=== PATIENT | female | born 1970 | race African-American/Black ===

== ENCOUNTER → 2016-06-16 | Outpatient (CLI) | payer OTHER ==
[2016-06-16 08:11] LABS: ABSOLUTE EOSINOPHILS # (AUTO) 0.1 10^3/uL (0.0-0.6); ABSOLUTE LYMPHOCYTES (AUTO) 1.5 10^3/uL (0.5-4.7); ABSOLUTE MONOCYTES (AUTO) 0.5 10^3/uL (0.1-1.4); ABSOLUTE NEUT (AUTO) 2.3 10^3/uL (1.7-8.2); BASOPHILS % (AUTO) 0.4 % (0-2); HEMATOCRIT 32.2 % (36.0-47.0); HEMOGLOBIN 10.5 g/dL (12.0-15.5); HGB HCT DIFFERENCE -0.7; LYMPHOCYTES % (AUTO) 33.5 % (13-45); MEAN CORPUSCULAR HEMOGLOBIN 25.3 pg (27.0-33.4); MEAN CORPUSCULAR HGB CONC 32.5 g/dL (32.0-36.0); MEAN CORPUSCULAR VOLUME 78 fl (80-97); MONOCYTES % (AUTO) 11.6 % (3-13); RED BLOOD COUNT 4.15 10^6/uL (3.72-5.28); RED CELL DISTRIBUTION WIDTH 15.1 % (11.5-14.0); SEGMENTED NEUTROPHILS % (AUTO) 52.5 % (42-78); WHITE BLOOD COUNT 4.4 10^3/uL (4.0-10.5)
[2016-06-16 08:34] LABS: ALANINE AMINOTRANSFERASE 35 U/L (9-52); ALBUMIN 4.3 g/dL (3.5-5.0); ALKALINE PHOSPHATASE 98 U/L (38-126); ANION GAP 10 (5-19); ASPARTATE AMINO TRANSFERASE 24 U/L (14-36); BILIRUBIN,TOTAL 0.8 mg/dL (0.2-1.3); BLOOD UREA NITROGEN 14 mg/dL (7-20); C-REACTIVE PROTEIN 16.7 mg/L (<10.0); CALCIUM 9.5 mg/dL (8.4-10.2); CARBON DIOXIDE 28 mmol/L (22-30); CHLORIDE 104 mmol/L (98-107); CHOLESTEROL 245.42 mg/dL (0-200); CREATININE RESULT 0.78 mg/dL (0.52-1.25); Direct HDL 59 mg/dL (>40); GLUCOSE 79 mg/dL (75-110); POTASSIUM 3.9 mmol/L (3.6-5.0); SODIUM 141.6 mmol/L (137-145); TOTAL PROTEIN 7.9 g/dL (6.3-8.2); TRIGLYCERIDES 67 mg/dL (<150)
[2016-06-16 08:43] LABS: DIRECT LDL 132 mg/dL (<100)
[2016-06-18 08:08] LABS: CYCLIC CITRUL PEPTIDE IGG/A AB 5 units (0-19)
== END ==
LOC: CCC 07:12
DX: M25.50 Pain in unspecified joint (principal); M25.60 Stiffness of unspecified joint, not elsewhere classified; I10 Essential (primary) hypertension
CPT/HCPCS: 36415; 80053; 80061; 83036; 84443; 85025; 86038; 86140; 86200; 86430

== ENCOUNTER → 2016-07-27 | Outpatient (CLI) | payer OTHER | LOC: CCC 09:57 | DX: D50.9 Iron deficiency anemia, unspecified (principal) | CPT/HCPCS: 36415; 82728; 83540; 83550 ==

== ENCOUNTER → 2017-02-25 | Outpatient (CLI) | payer OTHER | LOC: CCC 07:20 | DX: Z13.1 Encounter for screening for diabetes mellitus (principal) | CPT/HCPCS: 36415; 83036 ==

== ENCOUNTER → 2017-05-28 | Outpatient (CLI) | payer OTHER ==
--- NOTE | 2017-05-28 10:22 | EKG REPORT ---
SEVERITY:- NORMAL ECG - SINUS RHYTHM : Confirmed by: Stephanie Guerra 28-May-2017 10:21:02
[2017-05-28 11:39] LABS: ABSOLUTE EOSINOPHILS # (AUTO) 0.1 10^3/uL (0.0-0.6); ABSOLUTE LYMPHOCYTES (AUTO) 1.8 10^3/uL (0.5-4.7); ABSOLUTE MONOCYTES (AUTO) 0.3 10^3/uL (0.1-1.4); ABSOLUTE NEUT (AUTO) 1.5 10^3/uL (1.7-8.2); BASOPHILS % (AUTO) 0.9 % (0-2); HEMOGLOBIN 11.2 g/dL (12.0-15.5); LYMPHOCYTES % (AUTO) 47.3 % (13-45); MEAN CORPUSCULAR HEMOGLOBIN 24.3 pg (27.0-33.4); MEAN CORPUSCULAR VOLUME 76 fl (80-97); MONOCYTES % (AUTO) 9.4 % (3-13); PLATELET COUNT 158 10^3/uL (150-450); RED BLOOD COUNT 4.61 10^6/uL (3.72-5.28); RED CELL DISTRIBUTION WIDTH 16.3 % (11.5-14.0); SEGMENTED NEUTROPHILS % (AUTO) 40.4 % (42-78); TOTAL CELLS COUNTED % (AUTO) 100 %; WHITE BLOOD COUNT 3.7 10^3/uL (4.0-10.5)
[2017-05-28 12:01] LABS: ALANINE AMINOTRANSFERASE 39 U/L (9-52); ALBUMIN 4.2 g/dL (3.5-5.0); ALKALINE PHOSPHATASE 107 U/L (38-126); ANION GAP 9 (5-19); ASPARTATE AMINO TRANSFERASE 28 U/L (14-36); BILIRUBIN,DIRECT 0.3 mg/dL (0.0-0.4); BILIRUBIN,TOTAL 0.6 mg/dL (0.2-1.3); BLOOD UREA NITROGEN 6 mg/dL (7-20); C-REACTIVE PROTEIN 16.8 mg/L (<10.0); CALCIUM 9.8 mg/dL (8.4-10.2); CARBON DIOXIDE 27 mmol/L (22-30); CHLORIDE 107 mmol/L (98-107); CHOLESTEROL 243.39 mg/dL (0-200); CREATINE KINASE 186 U/L (30-135); GLUCOSE 78 mg/dL (75-110); POTASSIUM 4.5 mmol/L (3.6-5.0); TOTAL PROTEIN 7.7 g/dL (6.3-8.2); TRIGLYCERIDES 91 mg/dL (<150)
[2017-05-28 12:10] LABS: DIRECT LDL 155 mg/dL (<100)
[2017-05-28 12:20] LABS: ERYTHROCYTE SEDIMENTATION RATE 41 mm/hr (0-20)
[2017-05-31 07:04] LABS: CYCLIC CITRUL PEPTIDE IGG/A AB 6 units (0-19)
[2017-05-31 12:21] LABS: ANGIOTENSIN-CONVERTING ENZYME 60 U/L (14-82)
== END ==
LOC: CCC 09:39
DX: I10 Essential (primary) hypertension (principal); M25.50 Pain in unspecified joint; E78.5 Hyperlipidemia, unspecified; R00.9 Unspecified abnormalities of heart beat
CPT/HCPCS: 36415; 80053; 80061; 82164; 82550; 83036; 84443; 85025; 85652; 86038; 86140; 86200; 86430; 93005; 93010

== ENCOUNTER → 2017-06-04 | Outpatient (CLI) | payer OTHER ==
[2017-06-04 10:35] LABS: IRON 48.3 ug/dL (37-170)
[2017-06-04 11:04] LABS: FERRITIN 24.3 ng/mL (6.2-137.0)
[2017-06-07 17:37] LABS: HGB A 97.7 % (96.4-98.8); HGB A2 2.3 % (1.8-3.2); HGB SOLUBILITY RESULT Negative (Negative)
== END ==
LOC: CCC 09:28
DX: D50.9 Iron deficiency anemia, unspecified (principal)
CPT/HCPCS: 36415; 82728; 83020; 83540

== ENCOUNTER 2017-09-03 08:42 | Emergency (ER) | payer SELFPAY ==
[2017-09-03 08:52] VITALS: BP 149/90
[2017-09-03] MEDS ORDERED: TETRACAINE HCL 0.5% OPH SOLN 2 ML OD ONE (09:09)
--- NOTE | 2017-09-03 09:15 | ER Document Report ---
HPI - HPI Patient complains to provider of: left eye irritation Onset: Yesterday Onset/Duration: Sudden Quality of pain: Achy Severity: Severe Pain Level: 5 Context: Patient presents emergency department with complaints of left eye irritation since yesterday. She reports she wears contacts but has removed his contacts. She reports this morning she woke up and the sunlight really hurt her eye and she had drainage. She denies trauma. She denies fever vomiting diarrhea. She reports history of something that happened to her eye many years ago and she used steroid drops. Associated Symptoms: None Exacerbated by: Denies Relieved by: Denies Similar symptoms previously: No Recently seen / treated by doctor: No - REPRODUCTIVE Reproductive: DENIES: : Past Medical History - General Information source: Patient Last Menstrual Period: hyst - Social History Smoking Status: Unknown if Ever Smoked Cigarette use (# per day): No Frequency of alcohol use: None Drug Abuse: None Occupation: [employer] Lives with: Family Family History: Reviewed & Not Pertinent - Past Medical History Cardiac Medical History: Reports: Hx Hypercholesterolemia, Hx Hypertension Denies: Hx Coronary Artery Disease, Hx Heart Attack Pulmonary Medical History: Denies: Hx Asthma, Hx Bronchitis, Hx COPD, Hx Pneumonia Neurological Medical History: Denies: Hx Cerebrovascular Accident, Hx Seizures GI Medical History: Reports: Hx Gastroesophageal Reflux Disease Musculoskeltal Medical History: Denies Hx Arthritis Past Surgical History: Reports: Hx Hysterectomy, Hx Tubal Ligation - Immunizations Immunizations up to date: Yes Hx Diphtheria, Pertussis, Tetanus Vaccination: No - unsure Vertical Provider Document - CONSTITUTIONAL Agree With Documented VS: Yes Exam Limitations: No Limitations General Appearance: WD/WN, No Apparent Distress - INFECTION CONTROL TRAVEL OUTSIDE OF THE [place] IN LAST 30 DAYS: No - HEENT HEENT: Atraumatic, Conjuctival Injection, Normocephalic, PERRLA - NECK Neck: Normal Inspection, Supple. negative: Lymphadenopathy-Left, Lymphadenopathy-Right - RESPIRATORY Respiratory: Breath Sounds Normal - CARDIOVASCULAR Cardiovascular: Regular Rate - MUSCULOSKELETAL/EXTREMETIES Musculoskeletal/Extremeties: DENIS SMALL - NEURO Level of Consciousness: Awake, Alert, Appropriate Motor/Sensory: No Motor Deficit - DERM Integumentary: Warm, Dry Course - Re-evaluation Re-evalutation: 09/03/17 Patient felt immediate relief after tetracaine drop. She was instructed on Polytrim. She was also instructed to not reuse her contacts until after she followed up with her silo erector on Tuesday. She verbalized understanding to all instructions. - Vital Signs Vital signs: Temp Pulse Resp BP Pulse Ox 99.0 F 80 16 149/90 H 96 09/03/17 08:51 09/03/17 08:51 09/03/17 08:51 09/03/17 08:51 09/03/17 08:51 Procedures - Eye Procedure Left Alcaine Drops Administered: Yes - tetracaine drops, pt reports immediate relief after drops Fluorescein applied: Left Antibiotic Oinment/Drps Admin: Left eye Slit lamp used: No Notes: 09/03/17 11:03 vargas lamp utilized- no abrasion noted, pt reports immediate relief of irritation after tetracaine drops. Patient has appointment with Dr. vega on Tuesday. She was instructed on the importance of follow-up. She was also instructed on the importance of returning to the emergency department should she experience worsening pain and swelling of the eye. She verbalized understanding to all instructions. Discharge - Discharge Clinical Impression: Irritation of left eye Conjunctivitis Qualifiers: Conjunctivitis type: unspecified Laterality: left Qualified Code(s): H10.9 - Unspecified conjunctivitis Condition: Stable Disposition: HOME, SELF-CARE Instructions: Conjunctivitis ([facility]), Eyedrop Use ([facility]) Additional Instructions: *You have been evaluated for eye irritation, bacterial conjunctivitis *Use polytrim four times a day for 5 days *Good hand washing- Do not reuse wash clothes or towels after wiping eyes *Follow up with Dr Vega Tuesday at 1500 as scheduled *Return to ED for worsening condition, changes, needs Forms: Return to Work Referrals: [facility] [Primary Care Provider] - Follow up as needed NINO VEGA, MURRAY [NO LOCAL MD] - 09/05/17 3:00 pm
[2017-09-03] MEDS ORDERED: POLYMYXIN B SULFATE/TMP OPH SOLN (10 ML/ER DISP) OS ONE (09:52)
== END 2017-09-03 10:12 | disposition home or self-care (01) ==
LOC: ER 08:42
DX: H10.9 Unspecified conjunctivitis (principal); I10 Essential (primary) hypertension
CPT/HCPCS: 99282; J3490

== ENCOUNTER 2017-11-01 23:26 | Emergency (ER) | payer MEDICAID ==
[2017-11-01] MEDS ORDERED: AMLODIPINE BESYLATE 5 MG TABLET PO ONE (23:49)
--- NOTE | 2017-11-01 23:49 | ER Document Report ---
ED General - General Chief Complaint: Vertigo Stated Complaint: HEADACHE Time Seen by Provider: 11/01/17 23:40 Notes: Patient is a 47-year-old female presents with complaint of onset of chest tightness and shortness of breath. It woke her up from sleep. She said she thought it could be related to anxiety attack and therefore she took half milligram of lorazepam which relieved her symptoms. She did call the ambulance and symptoms were started and therefore she was brought here. No interventions in the ambulance. She also complains of a headache and spinning sensation that she has had for a week. Headache is more in the frontal aspect of her head. No neck pain. No vomiting. She does take her blood pressure medications. Medication she takes for high blood pressure is a combination of losartan 100 mg with 12-1/2 mg of hydrochlorothiazide. She also takes metformin 500 mg daily because she is "prediabetic". She denies any history of coronary disease. Last stress test was over 2 years ago. She has no other complaints at this time. She denies any focal weakness or numbness. No recent fevers or infections. She says that she did check her blood pressure week ago and her headache for started and it seemed to be normal but since then her blood pressure has slowly and steadily increase. TRAVEL OUTSIDE OF THE [place] IN LAST 30 DAYS: No - Related Data Allergies/Adverse Reactions: Iodinated Contrast- Oral and IV Dye [IV Dye, Iodine Containing] Allergy (Severe , Verified 09/03/17 08:43) Swelling of Throat lisinopril Allergy (Verified 11/01/17 23:52) morphine [Morphine] Adverse Reaction (Intermediate, Verified 09/03/17 08:43) throat swelling Past Medical History - Social History Smoking Status: Never Smoker Frequency of alcohol use: None Drug Abuse: None Family History: Reviewed & Not Pertinent - Past Medical History Cardiac Medical History: Reports: Hx Hypercholesterolemia, Hx Hypertension Denies: Hx Coronary Artery Disease, Hx Heart Attack Pulmonary Medical History: Denies: Hx Asthma, Hx Bronchitis, Hx COPD, Hx Pneumonia Neurological Medical History: Denies: Hx Cerebrovascular Accident, Hx Seizures Renal/ Medical History: Denies: Hx Peritoneal Dialysis GI Medical History: Reports: Hx Gastroesophageal Reflux Disease Musculoskeltal Medical History: Denies Hx Arthritis Past Surgical History: Reports: Hx Hysterectomy, Hx Tubal Ligation - Immunizations Immunizations up to date: Yes Hx Diphtheria, Pertussis, Tetanus Vaccination: No - unsure Review of Systems - Review of Systems Notes: My Normal Review Basic REVIEW OF SYSTEMS: CONSTITUTIONAL : Denies fever, chills, or sweats. Denies recent illness. EENT: Denies eye, ear, throat, or mouth pain or symptoms. Denies nasal or sinus congestion. CARDIOVASCULAR: Chest pressure RESPIRATORY: [place] short of breath with chest pressure. GASTROINTESTINAL: Denies abdominal pain. Denies nausea, vomiting, or diarrhea. GENITOURINARY: Denies difficulty urinating, painful urination, burning, frequency, or blood in urine. MUSCULOSKELETAL: Denies neck or back pain or joint pain or swelling. SKIN: Denies rash or skin lesions. NEUROLOGICAL: Denies altered mental status or loss of consciousness. Has a headache. Denies weakness or paralysis or loss of use of either side. Denies problems with gait or speech. Denies sensory or motor loss. ALL OTHER SYSTEMS REVIEWED AND NEGATIVE. Physical Exam - Vital signs Vitals: Pulse Ox 100 11/01/17 23:37 - Notes Notes: General Appearance: Well nourished, alert, cooperative, no acute distress, no obvious discomfort. Well-appearing. Vitals: reviewed, See vital signs table. Head: no swelling or tenderness to the head Eyes: PERRL, EOMI, Conjuctiva clear Mouth: No decreasd moisture Lungs: No wheezing, No rales, No rhonci, No accessory muscle use, good air exchange bilaterally. Heart: Normal rate, Regular rythm, No murmur, no rub Abdomen: Normal BS, soft, No rigidity, No abdominal tenderness, No guarding, no rebound, no abdominal masses, no organomegaly Extremities: strength 5/5 in all extremities, good pulses in all extremities, no swelling or tenderness in the extremities, no edema. Skin: warm, dry, appropriate color, no rash Neuro: speech clear, oriented x 3, normal affect, responds appropriately to questions. Cranial nerves II through XII are intact. Distal sensation intact. Patient moves all extremities without difficulty. Normal gait. Normal finger- nose-finger testing. normal coordination of extremities on exam. Course - Re-evaluation Re-evalutation: 11/02/17 06:59 [facility] did help the patient's vertigo. Headache is improved. I did give her a dose of amlodipine and this did help her blood pressure. I will not start her amlodipine as I am worried that this would bottom her out in case her blood pressure runs normal when she is not feeling unwell. Patient chest pain chest tightness sounds consistent with anxiety and that patient says it woke her up and she felt anxious and felt some with her anxiety and therefore took Ativan which completely relieved her symptoms. Her troponin and delta troponin are negative and her EKG is normal appearing and therefore do not feel she needs admission for her chest pain episode. I do not think her vertigo is related to a central cause. Remainder of her cerebellar function is intact. She has normal gait and normal coordination of her extremities. Feel that she is safe to be discharged home. I strongly encouraged her return to ER immediately if she has worsening recurrent dizziness, fevers, current chest pain , or she feels unwell. I will follow-up closely with her primary care doctor. Patient agrees with plan and will be discharged home. Dictation of this chart was performed using voice recognition software; therefore, there may be some unintended grammatical errors. - Vital Signs Vital signs: Temp Pulse Resp BP Pulse Ox 97.8 F 95 16 127/84 H 97 11/02/17 04:23 11/02/17 04:23 11/02/17 04:23 11/02/17 04:23 11/02/17 04:23 - Laboratory Result Diagrams: 11/02/17 00:15 11/02/17 00:15 Laboratory results interpreted by me: 11/02/17 00:15 Hgb 10.1 L Hct 31.5 L MCV 76 L MCH 24.3 L RDW 15.5 H - EKG Interpretation by Me Additional EKG results interpreted by me: 11/01/17 23:48 EKG is reviewed and interpreted by me. EKG shows sinus rhythm with rate of [address] segment elevation or depression. No ischemic T-wave inversions. OH interval, QRS duration, QTc intervals are within normal range. Old EKG available for comparison is from May 28, 2017. Discharge - Discharge Clinical Impression: Vertigo Headache Qualifiers: Headache type: unspecified Headache chronicity pattern: acute headache Intractability: not intractable Qualified Code(s): R51 - Headache Chest pain Qualifiers: Chest pain type: unspecified Qualified Code(s): R07.9 - Chest pain, unspecified Condition: Good Disposition: HOME, SELF-CARE Additional Instructions: Please follow up with your doctor this week for reevaluation. Please do not hesitate to return to the ER immediately if you have any recurrent chest pain, difficulty breathing, fevers, vomiting, or feel unwell. Please follow u with the ENT physician, Dr. Rodriguez, for reevaluation Prescriptions: Meclizine HCl 25 mg PO TID PRN #20 tablet PRN Reason: Dizziness Forms: Return to Work
[2017-11-02 00:22] LABS: ABSOLUTE EOSINOPHILS # (AUTO) 0.1 10^3/uL (0.0-0.6); ABSOLUTE LYMPHOCYTES (AUTO) 2.1 10^3/uL (0.5-4.7); ABSOLUTE MONOCYTES (AUTO) 0.8 10^3/uL (0.1-1.4); ABSOLUTE NEUT (AUTO) 3.5 10^3/uL (1.7-8.2); BASOPHILS % (AUTO) 0.4 % (0-2); EOSINOPHILS % (AUTO) 1.6 % (0-6); HEMATOCRIT 31.5 % (36.0-47.0); HEMOGLOBIN 10.1 g/dL (12.0-15.5); LYMPHOCYTES % (AUTO) 32.1 % (13-45); MEAN CORPUSCULAR HEMOGLOBIN 24.3 pg (27.0-33.4); MEAN CORPUSCULAR VOLUME 76 fl (80-97); MONOCYTES % (AUTO) 12.5 % (3-13); PLATELET COUNT 190 10^3/uL (150-450); RED BLOOD COUNT 4.14 10^6/uL (3.72-5.28); RED CELL DISTRIBUTION WIDTH 15.5 % (11.5-14.0); SEGMENTED NEUTROPHILS % (AUTO) 53.4 % (42-78); TOTAL CELLS COUNTED % (AUTO) 100 %; WHITE BLOOD COUNT 6.6 10^3/uL (4.0-10.5)
[2017-11-02 00:39] LABS: ALANINE AMINOTRANSFERASE 29 U/L (9-52); ALKALINE PHOSPHATASE 92 U/L (38-126); ANION GAP 11 (5-19); ASPARTATE AMINO TRANSFERASE 21 U/L (14-36); BILIRUBIN,DIRECT 0.3 mg/dL (0.0-0.4); BILIRUBIN,TOTAL 0.4 mg/dL (0.2-1.3); BLOOD UREA NITROGEN 16 mg/dL (7-20); CALCIUM 9.1 mg/dL (8.4-10.2); CARBON DIOXIDE 27 mmol/L (22-30); CHLORIDE 107 mmol/L (98-107); GLUCOSE 92 mg/dL (75-110); POTASSIUM 3.6 mmol/L (3.6-5.0); TOTAL PROTEIN 7.5 g/dL (6.3-8.2)
--- NOTE | 2017-11-02 00:48 | RADIOLOGY REPORT (SQ) ---
EXAM DESCRIPTION: CT HEAD WITHOUT IV CONTRAST COMPLETED DATE/TME: 11/01/2017 23:47 CLINICAL HISTORY: headache,dizzy. COMPARISON: None available TECHNIQUE: Axial CT of the head obtained from the skull apex to the skull base without contrast. FINDINGS: No acute intracranial hemorrhage identified. No mass, mass effect, shift of the midline, abnormal extra-axial fluid collection or CT evidence of acute ischemic change identified. The ventricular system is unremarkable. No acute abnormalities of the supratentorial white matter, basal ganglia, cerebellum, or brainstem. The visualized paranasal sinuses and the mastoids are clear. No skull fracture identified. Visualized orbits and globes are unremarkable. DLP:1043.77 mGy-cm IMPRESSION: 1. No acute intracranial abnormality identified. This exam was performed according to our departmental dose-optimization program, which includes automated exposure control, adjustment of the mA and/or kV according to patient size and/or use of iterative reconstruction technique.
--- NOTE | 2017-11-02 01:19 | RADIOLOGY REPORT (SQ) ---
EXAM DESCRIPTION: XR CHEST 1 VIEW COMPLETED DATE/TME: 11/01/2017 01:06 CLINICAL HISTORY: chest pain COMPARISON: None. FINDINGS: Single frontal view of the chest. Leads overlie the chest. The cardiomediastinal silhouette has normal size and contour. No consolidation, pneumothorax, or pleural effusion. No displaced rib fractures identified. Upper abdominal soft tissues are unremarkable. IMPRESSION: 1. No acute pulmonary process identified.
[2017-11-02] MEDS ORDERED: MECLIZINE HCL 25 MG TABLET PO ONE (02:02)
[2017-11-02 04:17] VITALS: BP 127/84
--- NOTE | 2017-11-03 07:43 | EKG REPORT ---
SEVERITY:- NORMAL ECG - SINUS RHYTHM : Confirmed by: Coleen Tipton MD 03-Nov-2017 07:41:55
== END 2017-11-02 04:23 | disposition home or self-care (01) ==
LOC: ER 23:26
DX: R42 Dizziness and giddiness (principal); R07.9 Chest pain, unspecified; R51 Headache; R06.02 Shortness of breath; E78.00 Pure hypercholesterolemia, unspecified; I10 Essential (primary) hypertension; Z88.6 Allergy status to analgesic agent; Z90.710 Acquired absence of both cervix and uterus
CPT/HCPCS: 93005; 99284; 36415; 85025; 80053; 84484; 71045; 70450; 93010; J3490

== ENCOUNTER → 2018-03-14 | Outpatient (CLI) | payer OTHER ==
[2018-03-14 09:05] LABS: ABSOLUTE EOSINOPHILS # (AUTO) 0.1 10^3/uL (0.0-0.6); ABSOLUTE LYMPHOCYTES (AUTO) 1.3 10^3/uL (0.5-4.7); ABSOLUTE MONOCYTES (AUTO) 0.4 10^3/uL (0.1-1.4); BASOPHILS % (AUTO) 0.3 % (0-2); EOSINOPHILS % (AUTO) 1.7 % (0-6); HEMATOCRIT 32.4 % (36.0-47.0); HEMOGLOBIN 10.9 g/dL (12.0-15.5); LYMPHOCYTES % (AUTO) 33.9 % (13-45); MEAN CORPUSCULAR HEMOGLOBIN 25.7 pg (27.0-33.4); MEAN CORPUSCULAR HGB CONC 33.7 g/dL (32.0-36.0); MEAN CORPUSCULAR VOLUME 76 fl (80-97); MONOCYTES % (AUTO) 10.1 % (3-13); PLATELET COUNT 176 10^3/uL (150-450); RED BLOOD COUNT 4.25 10^6/uL (3.72-5.28); TOTAL CELLS COUNTED % (AUTO) 100 %; WHITE BLOOD COUNT 3.8 10^3/uL (4.0-10.5)
[2018-03-14 09:18] LABS: ALANINE AMINOTRANSFERASE 20 U/L (9-52); ALBUMIN 3.9 g/dL (3.5-5.0); ALKALINE PHOSPHATASE 100 U/L (38-126); ANION GAP 11 (5-19); ASPARTATE AMINO TRANSFERASE 22 U/L (14-36); BILIRUBIN,DIRECT 0.2 mg/dL (0.0-0.4); BILIRUBIN,TOTAL 0.8 mg/dL (0.2-1.3); BLOOD UREA NITROGEN 14 mg/dL (7-20); CALCIUM 9.3 mg/dL (8.4-10.2); CARBON DIOXIDE 30 mmol/L (22-30); CHLORIDE 102 mmol/L (98-107); CHOLESTEROL 210.36 mg/dL (0-200); GLUCOSE 90 mg/dL (75-110); IRON(TIBC) 43.7 ug/dL (37-170); SODIUM 142.5 mmol/L (137-145); TOTAL PROTEIN 7.4 g/dL (6.3-8.2); TRIGLYCERIDES 73 mg/dL (<150)
[2018-03-14 09:30] LABS: DIRECT LDL 144 mg/dL (<100)
== END ==
LOC: CCC 07:44
DX: D64.9 Anemia, unspecified (principal); I10 Essential (primary) hypertension
CPT/HCPCS: 36415; 80053; 80061; 82728; 83036; 83540; 83550; 84443; 85025

== ENCOUNTER 2018-05-21 18:50 | Inpatient (IN) | payer OTHER ==
[2018-05-21] MEDS ORDERED: NORMAL SALINE 1000 ML 1,000 ML IV ONE (19:32)
[2018-05-21] MEDS ORDERED: ONDANSETRON HCL INJ/PF 4 MG/2 ML SDV IV ONE (19:32)
[2018-05-21 20:48] LABS: ABSOLUTE LYMPHOCYTES (AUTO) 1.4 10^3/uL (0.5-4.7); ABSOLUTE MONOCYTES (AUTO) 0.9 10^3/uL (0.1-1.4); BASOPHILS % (AUTO) 0.5 % (0-2); EOSINOPHILS % (AUTO) 0.5 % (0-6); HEMATOCRIT 32.4 % (36.0-47.0); HEMOGLOBIN 10.6 g/dL (12.0-15.5); LYMPHOCYTES % (AUTO) 14.6 % (13-45); MEAN CORPUSCULAR HGB CONC 32.8 g/dL (32.0-36.0); MEAN CORPUSCULAR VOLUME 76 fl (80-97); MONOCYTES % (AUTO) 9.6 % (3-13); PLATELET COUNT 196 10^3/uL (150-450); RED BLOOD COUNT 4.25 10^6/uL (3.72-5.28); RED CELL DISTRIBUTION WIDTH 14.7 % (11.5-14.0); SEGMENTED NEUTROPHILS % (AUTO) 74.8 % (42-78); TOTAL CELLS COUNTED % (AUTO) 100 %; WHITE BLOOD COUNT 9.3 10^3/uL (4.0-10.5)
[2018-05-21] MEDS ORDERED: PANTOPRAZOLE SODIUM 40 MG VIAL IV ONE ×2 (20:48→23:00)
--- NOTE | 2018-05-21 20:53 | ER Document Report ---
ED General - General Chief Complaint: Vomiting Stated Complaint: VOMITING,ABDOMINAL PAIN Time Seen by Provider: 05/21/18 20:23 TRAVEL OUTSIDE OF THE [place] IN LAST 30 DAYS: No - HPI Notes: Patient is a 48-year-old female that presents to the emergency department for chief complaint of nausea and vomiting. Patient reports multiple episodes of vomiting starting this afternoon. She states the first 3 episodes there was some bright red blood. She describes it as streaking in her mucus without clots or coffee-ground appearance. She denies any black or bloody stools. She states she had an EGD performed a few weeks ago by a GI physician at [facility] which showed gastritis and esophagitis. She denies any esophageal varices. She states she has had gastric ulcers in the past but has been many years. Patient reports a nausea and mild epigastric discomfort. She denies fevers and chills, dysuria, shortness of breath and chest pain. Patient states that she does have a history of anemia but has not ever had a blood transfusion. She believes her hemoglobin was 7 or 8 but after taking iron and having a hysterectomy her anemia improved. She is not currently on iron supplementation. Past Medical History: Diabetes, hypertension, hyperlipidemia, anemia Past Surgical History: Hysterectomy Social History: Denies drugs alcohol or tobacco Family History: Reviewed and noncontributory for presenting illness Allergies: Reviewed, see documented allergy list. REVIEW OF SYSTEMS: CONSTITUTIONAL : No fever No chills No diaphoresis No recent illness EENT: No vision changes No congestion No sore throat CARDIOVASCULAR: No chest pain No palpitations RESPIRATORY: No shortness of breath No cough No difficulty breathing GASTROINTESTINAL: abdominal pain nausea vomiting Hematemesis No diarrhea GENITOURINARY: No dysuria No hematuria No difficulty urinating MUSCULOSKELETAL: No back pain No leg pain No arm pain SKIN: No rashes No lesions LYMPHATIC: No swollen, enlarged glands. NEUROLOGICAL: No lightheadedness No headache No weakness No paresthesias PSYCHIATRIC: No anxiety No depression PHYSICAL EXAMINATION: Vital signs reviewed, nursing noted reviewed. GENERAL: Well-appearing, well-nourished and in no acute distress. HEAD: Atraumatic, normocephalic. EYES: Eyes appear normal, extraocular movements intact, sclera anicteric, conjunctiva are normal without pallor. ENT: nares patent, oropharynx clear without exudates. Moist mucous membranes. NECK: Normal range of motion, supple without lymphadenopathy LUNGS: Breath sounds clear to auscultation bilaterally and equal. No wheezes rales or rhonchi. HEART: Regular rate and rhythm without murmurs ABDOMEN: Soft, nontender, normoactive bowel sounds. No rebound, guarding, or rigidity. No masses appreciated. EXTREMITIES: Nontender, good range of motion, no pitting or edema. NEUROLOGICAL: No focal neurological deficits. Moves all extremities spontaneously Motor and sensory grossly intact on exam. PSYCH: Normal mood, normal affect. SKIN: Warm, Dry, normal turgor, no rashes or lesions noted on exposed skin - Related Data Allergies/Adverse Reactions: Iodinated Contrast- Oral and IV Dye [IV Dye, Iodine Containing] Allergy (Severe, Verified 09/03/17 08:43) Swelling of Throat lisinopril Allergy (Verified 11/01/17 23:52) morphine [Morphine] Adverse Reaction (Intermediate, Verified 09/03/17 08:43) throat swelling Past Medical History - Social History Smoking Status: Never Smoker Chew tobacco use (# tins/day): No Frequency of alcohol use: None Family History: Reviewed & Not Pertinent Patient has suicidal ideation: No Patient has homicidal ideation: No - Past Medical History Cardiac Medical History: Reports: Hx Hypercholesterolemia, Hx Hypertension Denies: Hx Coronary Artery Disease, Hx Heart Attack Pulmonary Medical History: Denies: Hx Asthma, Hx Bronchitis, Hx COPD, Hx Pneumonia Neurological Medical History: Denies: Hx Cerebrovascular Accident, Hx Seizures Endocrine Medical History: Reports: Hx Diabetes Mellitus Type 2 - pre Renal/ Medical History: Denies: Hx Peritoneal Dialysis GI Medical History: Reports: Hx Gastroesophageal Reflux Disease Musculoskeletal Medical History: Denies Hx Arthritis Past Surgical History: Reports: Hx Hysterectomy, Hx Tubal Ligation - Immunizations Immunizations up to date: Yes Hx Diphtheria, Pertussis, Tetanus Vaccination: No - unsure Physical Exam - Vital signs Vitals: Temp Pulse Resp BP Pulse Ox 99.1 F 96 20 147/90 H 93 05/21/18 18:59 05/21/18 18:59 05/21/18 18:59 05/21/18 18:59 05/21/18 18:59 Course - Re-evaluation Re-evalutation: 05/21/18 20:52 Vitals reviewed. Nursing notes reviewed. Patient given IV fluids, Zofran and Protonix for symptomatic management. 05/21/18 22:19 Patient's lab work shows elevated BUN and creatinine consistent with acute kidney injury and dehydration. She better after fluids and medication. She has not had further hematemesis in the emergency room. Her hemoglobin is 10 which appears to be around her baseline. Patient will be admitted to the hospital for close monitoring of her hematemesis as well as acute kidney injury and dehydration. She is in agreement with this plan. She is stable at time of admission. Laboratory 05/21/18 05/21/18 05/21/18 20:40 20:40 20:55 WBC 9.3 RBC 4.25 Hgb 10.6 L Hct 32.4 L MCV 76 L MCH 25.0 L MCHC 32.8 RDW 14.7 H Plt Count 196 Seg Neutrophils % 74.8 Lymphocytes % 14.6 Monocytes % 9.6 Eosinophils % 0.5 Basophils % 0.5 Absolute Neutrophils 7.0 Absolute Lymphocytes 1.4 Absolute Monocytes 0.9 Absolute Eosinophils 0.0 Absolute Basophils 0.0 Sodium 142.6 Potassium 3.8 Chloride 105 Carbon Dioxide 27 Anion Gap 11 BUN 21 H Creatinine 1.45 H Est GFR ( Amer) 46 L Est GFR (Non-Af Amer) 38 L Glucose 95 Calcium 9.2 Total Bilirubin 0.5 Direct Bilirubin 0.3 Neonat Total Bilirubin Not Reportable Neonat Direct Bilirubin Not Reportable Neonat Indirect Bili Not Reportable AST 23 ALT 27 Alkaline Phosphatase 101 Total Protein 7.9 Albumin 4.5 Lipase 145.7 Urine Color STRAW Urine Appearance CLEAR Urine pH 6.0 Ur Specific Round O 1.006 Urine Protein 30 H Urine Glucose (UA) NEGATIVE Urine Ketones NEGATIVE Urine Blood SMALL H Urine Nitrite NEGATIVE Urine Bilirubin NEGATIVE Urine Urobilinogen NEGATIVE Ur Leukocyte Esterase NEGATIVE Urine WBC (Auto) 2 Urine RBC (Auto) 2 U Hyaline Cast (Auto) 5 Urine Bacteria (Auto) TRACE Squamous Epi Cells Auto <1 Urine Mucus (Auto) RARE Urine Ascorbic Acid NEGATIVE 05/21/18 22:[address] Beltrán who accepted admission. - Vital Signs Vital signs: Temp Pulse Resp BP Pulse Ox 99.1 F 96 20 147/90 H 93 05/21/18 18:59 05/21/18 18:59 05/21/18 18:59 05/21/18 18:59 05/21/18 18:59 - Laboratory Result Diagrams: 05/21/18 20:40 05/21/18 20:40 Laboratory results interpreted by me: 05/21/18 05/21/18 05/21/18 20:40 20:40 20:55 Hgb 10.6 L Hct 32.4 L MCV 76 L MCH 25.0 L RDW 14.7 H BUN 21 H Creatinine 1.45 H Est GFR ( Amer) 46 L Est GFR (Non-Af Amer) 38 L Urine Protein 30 H Urine Blood SMALL H Discharge - Discharge Clinical Impression: RONY (acute kidney injury) Hematemesis Qualifiers: Nausea presence: with nausea Qualified Code(s): K92.0 - Hematemesis Condition: Stable Disposition: ADMITTED INPATIENT Admitting Provider: Hospitalist Unit Admitted: Medical Floor Referrals: [facility] [NO LOCAL MD] - Follow up as needed
[2018-05-21 21:07] LABS: ALANINE AMINOTRANSFERASE 27 U/L (9-52); ALBUMIN 4.5 g/dL (3.5-5.0); ALKALINE PHOSPHATASE 101 U/L (38-126); ANION GAP 11 (5-19); ASPARTATE AMINO TRANSFERASE 23 U/L (14-36); BILIRUBIN,DIRECT 0.3 mg/dL (0.0-0.4); BILIRUBIN,TOTAL 0.5 mg/dL (0.2-1.3); BLOOD UREA NITROGEN 21 mg/dL (7-20); CALCIUM 9.2 mg/dL (8.4-10.2); CARBON DIOXIDE 27 mmol/L (22-30); CHLORIDE 105 mmol/L (98-107); GLUCOSE 95 mg/dL (75-110); LIPASE 145.7 U/L (23-300); POTASSIUM 3.8 mmol/L (3.6-5.0); SODIUM 142.6 mmol/L (137-145); TOTAL PROTEIN 7.9 g/dL (6.3-8.2)
[2018-05-21 21:22] LABS: APPEARANCE,URINE CLEAR; BILIRUBIN,URINE NEGATIVE (NEGATIVE); COLOR,URINE STRAW; GLUCOSE, URINE NEGATIVE (NEGATIVE); KETONES,URINE NEGATIVE (NEGATIVE); LEUKOCYTE ESTERASE,URINE NEGATIVE (NEGATIVE); NITRITE,URINE NEGATIVE (NEGATIVE); PROTEIN,URINE 30 mg/dL (NEGATIVE); URINE SPECIFIC GRAVITY 1.006; UROBILINOGEN,URINE NEGATIVE mg/dL (<2.0)
[2018-05-21] MEDS ORDERED: MAG HYDROX/AL HYDROX/SIMETH SUSP 30 ML UDCUP PO PRN (22:23)
[2018-05-21] MEDS ORDERED: ONDANSETRON 4 MG TAB.RAPDIS PO PRN (22:23)
[2018-05-21] MEDS ORDERED: ONDANSETRON HCL INJ/PF 4 MG/2 ML SDV IV PRN (22:23)
[2018-05-21] MEDS ORDERED: MAGNESIUM HYDROXIDE SUSP 30 ML UDCUP PO PRN (22:23)
[2018-05-21] MEDS ORDERED: ACETAMINOPHEN 325 MG TABLET PO PRN (22:34)
[2018-05-21] MEDS ORDERED: NALBUPHINE HCL INJ 10 MG/1 ML AMPULE IV PRN (22:34)
[2018-05-21] MEDS ORDERED: ACETAMINOPHEN 650 MG SUPP.RECT PR PRN (22:34)
[2018-05-21] MEDS ORDERED: NICOTINE 21 MG/24 HR PATCH.TD24 TD PRN (22:34)
[2018-05-21] MEDS: NORMAL SALINE 1000 ML 1,000 ML IV PRN (23:31)
[2018-05-21] MEDS: METOCLOPRAMIDE HCL INJ/PF 10 MG/2 ML SDV IV SCH (23:46)
--- NOTE | 2018-05-22 02:13 | PDOC H&P ---
History of Present Illness Admission Date/PCP: 05/21/18 22:23 Patient complains of: Nausea and vomiting with hematemesis History of Present Illness: HILARIO LOWRY is a 48 year old female who presented to the emergency room with a chief complaint of nausea and vomiting beginning on the late afternoon of admission. She admits that her nausea and vomiting have become severe, she has also developed mild epigastric discomfort after vomiting and with the initial 3 episodes of emesis she noticed some bright red blood present in the foamy mucus accompanying the emesis. She denied blood clots or coffee ground material within the emesis. She denies hematemesis since her third emesis though she has had numerous episodes of emesis since that time. She denies diarrhea, melena, hematochezia and constipation. Additionally she denies fever, chills, dysuria, hematuria, chest pain or dyspnea. She admits a history of gastric ulcers in the past and also had H. pylori. She acknowledges a history of chronic anemia. She admits prior similar episodes when she had H. pylori and gastritis in the past but she has not identified any aggravating or ameliorating factors for her current episode. In the emergency room she was found to have a hemoglobin of 10.2 but was noted to have an increased creatinine at 1.45 which is significantly higher than her baseline. With the evidence of acute renal injury it was felt to be appropriate to admit the patient hospital for further evaluation and treatment. Past Medical History Cardiac Medical History: Reports: Hyperlipidema, Hypertension Denies: Coronary Artery Disease, Myocardial Infarction Pulmonary Medical History: Denies: Asthma, Bronchitis, Chronic Obstructive Pulmonary Disease (COPD), Pneumonia EENT Medical History: Reports: None Neurological Medical History: Denies: Hemorrhagic CVA, Ischemic CVA, Multiple Sclerosis, Seizures Endocrine Medical History: Reports: Diabetes Mellitus Type 2 - pre, Obesity Denies: Diabetes Mellitus Type 1, Hyperthyroidism, Hypothyroidism Renal/ Medical History: Denies: Chronic Kidney Disease, Nephrolithiasis Malignancy Medical History: Reports: None GI Medical History: Reports: Gastroesophageal Reflux Disease, Other - Gastric ulcers, H. pylori. Musculoskeltal Medical History: Denies: Arthritis, Gout Skin Medical History: Denies: Eczema, Psoriasis Psychiatric Medical History: Denies: Alcohol Dependency, Substance Abuse, Tobacco Dependency Traumatic Medical History: Reports: None Hematology: Reports: Anemia Denies: Bleeding Tendencies Infectious Medical History: Reports: None Past Surgical History Past Surgical History: Reports: Hysterectomy, Tubal Ligation, Other - EGD performed within the last year. Social History Information Source: Patient Lives with: Spouse/Significant other Smoking Status: Never Smoker Frequency of Alcohol Use: None Hx Recreational Drug Use: No Drugs: None Hx Prescription Drug Abuse: No - Advance Directive Resuscitation Status: Full Code Surrogate healthcare decision maker:: Aydee George Family History Family History: DM, Hypertension Parental Family History Reviewed: Yes Children Family History Reviewed: No Sibling(s) Family History Reviewed.: Yes Medication/Allergy Home Medications: Dicyclomine HCl 20 mg PO QID PRN 10/30/14 Ibuprofen 600 mg PO Q8 PRN 10/30/14 Lisinopril 20 mg PO DAILY 10/30/14 Ondansetron [Zofran Odt 4 mg Tablet] 4 mg PO Q4HP PRN 10/30/14 Metoclopramide HCl [Reglan 10 mg Tablet] 1 - 2 tab PO ASDIR PRN #25 tablet 07/01/15 Oxycodone HCl/Acetaminophen [Percocet 5-325 mg Tablet] 1 - 2 tab PO Q4H PRN #15 tablet 07/01/15 Hydrocodone/Acetaminophen [Brogan 5-325 mg Tablet] 1 tab PO Q6 #10 tablet 0 10/28/15 Ondansetron [Zofran Odt 4 mg Tablet] 1 - 2 tab PO Q4H PRN #15 tab.rapdis 10/28/15 Meclizine HCl 25 mg PO TID PRN #20 tablet 11/02/17 Allergies/Adverse Reactions: Iodinated Contrast- Oral and IV Dye [IV Dye, Iodine Containing] Allergy (Severe, Verified 09/03/17 08:43) Swelling of Throat lisinopril Allergy (Verified 11/01/17 23:52) morphine [Morphine] Adverse Reaction (Intermediate, Verified 09/03/17 08:43) throat swelling Review of Systems Constitutional: ABSENT: chills, fever(s) Eyes: ABSENT: visual disturbances, other - Ocular pain Ears: ABSENT: hearing changes, other - Ear pain Nose, Mouth, and Throat: ABSENT: mouth pain, sore throat Cardiovascular: ABSENT: chest pain, dyspnea on exertion, edema, orthropnea, palpitations Respiratory: ABSENT: cough, dyspnea, hemoptysis Gastrointestinal: PRESENT: as per HPI, abdominal pain, hematemesis, nausea, vomiting. ABSENT: constipation, diarrhea, hematochezia, melena Genitourinary: ABSENT: dysuria, hematuria Musculoskeletal: ABSENT: deformity, joint swelling Integumentary: ABSENT: pruritus, rash Neurological: ABSENT: confusion, convulsions, memory loss Psychiatric: ABSENT: anxiety, depression Endocrine: ABSENT: cold intolerance, heat intolerance Hematologic/Lymphatic: ABSENT: easy bleeding, easy bruising Physical Exam Vital Signs: Temp Pulse Resp BP Pulse Ox 99.1 F 96 20 147/90 H 93 05/21/18 18:59 05/21/18 18:59 05/21/18 18:59 05/21/18 18:59 05/21/18 18:59 Intake & Output 05/19/18 05/20/18 05/21/18 23:59 23:59 23:59 Weight 101.6 kg General appearance: PRESENT: no acute distress, cooperative, obese Head exam: PRESENT: atraumatic, normocephalic Eye exam: PRESENT: conjunctiva pink, EOMI. ABSENT: scleral icterus Ear exam: PRESENT: normal external ear exam. ABSENT: bleeding, drainage Mouth exam: PRESENT: dry mucosa, neck supple Neck exam: ABSENT: JVD, thyromegaly, tracheal deviation Respiratory exam: PRESENT: clear to auscultation seble, symmetrical, unlabored Cardiovascular exam: PRESENT: RRR. ABSENT: clicks, gallop, rubs Pulses: PRESENT: normal radial pulses, normal dorsalis pedis pul GI/Abdominal exam: PRESENT: normal bowel sounds, soft, tenderness - Minimal epigastric tenderness on palpation Rectal exam: PRESENT: deferred Extremities exam: ABSENT: joint swelling, pedal edema Musculoskeletal exam: ABSENT: deformity, dislocation Neurological exam: PRESENT: alert, oriented to person, oriented to place, oriented to time, oriented to situation, CN II-XII grossly intact. ABSENT: motor sensory deficit Psychiatric exam: PRESENT: appropriate affect, normal mood Skin exam: PRESENT: dry, intact, warm. ABSENT: jaundice, rash, urticaria Results Laboratory Results: 05/21/18 20:40 05/21/18 20:40 05/21/18 05/21/18 05/21/18 20:40 20:40 20:55 WBC 9.3 RBC 4.25 Hgb 10.6 L Hct 32.4 L MCV 76 L MCH 25.0 L MCHC 32.8 RDW 14.7 H Plt Count 196 Seg Neutrophils % 74.8 Lymphocytes % 14.6 Monocytes % 9.6 Eosinophils % 0.5 Basophils % 0.5 Absolute Neutrophils 7.0 Absolute Lymphocytes 1.4 Absolute Monocytes 0.9 Absolute Eosinophils 0.0 Absolute Basophils 0.0 Sodium 142.6 Potassium 3.8 Chloride 105 Carbon Dioxide 27 Anion Gap 11 BUN 21 H Creatinine 1.45 H Est GFR ( Amer) 46 L Est GFR (Non-Af Amer) 38 L Glucose 95 Calcium 9.2 Total Bilirubin 0.5 AST 23 ALT 27 Alkaline Phosphatase 101 Total Protein 7.9 Albumin 4.5 Lipase 145.7 Urine Color STRAW Urine Appearance CLEAR Urine pH 6.0 Ur Specific [place] 1.006 Urine Protein 30 H Urine Glucose (UA) NEGATIVE Urine Ketones NEGATIVE Urine Blood SMALL H Urine Nitrite NEGATIVE Ur Leukocyte Esterase NEGATIVE Urine WBC (Auto) 2 Urine RBC (Auto) 2 Assessment & Plan - Diagnosis (1) RONY (acute kidney injury) Is this a current diagnosis for this admission?: Yes Plan: Patient's renal functions will be followed on a daily basis with a metabolic profile. She will be given IV fluids for volume repletion and other supportive care as required for nausea and vomiting etc. (2) Hematemesis Qualifiers: Nausea presence: with nausea Qualified Code(s): K92.0 - Hematemesis Is this a current diagnosis for this admission?: Yes Plan: Patient will be observed clinically during her hospital course and will have serial CBCs performed to evaluate for significant bleeding. (3) Nausea and vomiting Qualifiers: Vomiting type: bilious vomiting Qualified Code(s): R11.14 - Bilious vomit ing Is this a current diagnosis for this admission?: Yes Plan: Patient will receive antiemetics and other symptomatic care as well as general s upportive care during her hospital course. Serum electrolyte levels will be monitored on a daily basis and repletion will be accomplished as needed. She will also have Nubain 10 mg IV every 3 hours as needed for abdominal pain associated with vomiting. (4) HTN (hypertension) Qualifiers: Hypertension type: essential hypertension Qualified Code(s): I10 - Essential (primary) hypertension Is this a current diagnosis for this admission?: Yes Plan: Patient will be continued on her losartan without the addition of hydrochlorothiazide during her hospital course. Once her volume repletion is complete, consideration to restarting the hydrochlorothiazide component of her antihypertensive therapy can be given. (5) Obesity (BMI 30-39.9) Is this a current diagnosis for this admission?: Yes Plan: The patient may have a dietary consultation performed to assist her with potential weight loss via diet and lifestyle changes to improve her overall health. - Time Time Spent: 30 to 50 Minutes Critical Time spent with patient: Less than 15 minutes Medications reviewed and adjusted accordingly: Yes Anticipated discharge: Home Within: within 72 hours - Inpatient Certification Based on my medical assessment, after consideration of the patient's comorbidities, presenting symptoms, or acuity I expect that the services needed warrant INPATIENT care.: Yes I certify that my determination is in accordance with my understanding of Medicare's requirements for reasonable and necessary INPATIENT services [42 CFR 412.3e].: Yes Medical Necessity: Need Close Monitoring Due to Risk of Patient Decompensation, Need For IV Fluids, Risk of Complication if Not Cared For in Hospital
[2018-05-22] MEDS: NORMAL SALINE 1000 ML 1,000 ML IV PRN ×3 (04:34→12:32)
[2018-05-22] MEDS: METOCLOPRAMIDE HCL INJ/PF 10 MG/2 ML SDV IV SCH ×2 (05:17→12:32)
[2018-05-22 06:29] LABS: ABSOLUTE LYMPHOCYTES (AUTO) 1.9 10^3/uL (0.5-4.7); ABSOLUTE MONOCYTES (AUTO) 0.6 10^3/uL (0.1-1.4); ABSOLUTE NEUT (AUTO) 4.4 10^3/uL (1.7-8.2); BASOPHILS % (AUTO) 0.5 % (0-2); EOSINOPHILS % (AUTO) 0.4 % (0-6); HEMATOCRIT 30.7 % (36.0-47.0); HEMOGLOBIN 9.9 g/dL (12.0-15.5); LYMPHOCYTES % (AUTO) 27.5 % (13-45); MEAN CORPUSCULAR HEMOGLOBIN 24.6 pg (27.0-33.4); MEAN CORPUSCULAR HGB CONC 32.4 g/dL (32.0-36.0); MEAN CORPUSCULAR VOLUME 76 fl (80-97); MONOCYTES % (AUTO) 8.7 % (3-13); PLATELET COUNT 174 10^3/uL (150-450); RED BLOOD COUNT 4.03 10^6/uL (3.72-5.28); RED CELL DISTRIBUTION WIDTH 14.9 % (11.5-14.0); SEGMENTED NEUTROPHILS % (AUTO) 62.9 % (42-78); TOTAL CELLS COUNTED % (AUTO) 100 %; WHITE BLOOD COUNT 7.1 10^3/uL (4.0-10.5)
[2018-05-22 06:41] LABS: ANION GAP 11 (5-19); BLOOD UREA NITROGEN 19 mg/dL (7-20); CALCIUM 8.7 mg/dL (8.4-10.2); CARBON DIOXIDE 22 mmol/L (22-30); CHLORIDE 112 mmol/L (98-107); GLUCOSE 85 mg/dL (75-110); SODIUM 144.5 mmol/L (137-145)
[2018-05-22] MEDS ORDERED: LOSARTAN POTASSIUM 50 MG TABLET PO SCH (10:00)
[2018-05-22] MEDS ORDERED: PANTOPRAZOLE SODIUM 40 MG VIAL IV SCH (10:00)
[2018-05-22] MEDS ORDERED: LISINOPRIL 10 MG TABLET PO SCH (10:00)
[2018-05-22] MEDS ORDERED: DOCUSATE SODIUM 100 MG CAPSULE PO SCH (10:00)
--- NOTE | 2018-05-22 14:40 | PDOC DISCHARGE SUMMARY ---
General - Admit/Disc Date/PCP Admission Date/Primary Care Provider: 05/21/18 22:23 Discharge Date: 05/22/18 - Discharge Diagnosis (1) RONY (acute kidney injury) Is this a current diagnosis for this admission?: Yes (2) HTN (hypertension) Is this a current diagnosis for this admission?: Yes (3) Hematemesis Is this a current diagnosis for this admission?: Yes (4) Nausea and vomiting Is this a current diagnosis for this admission?: Yes (5) Obesity (BMI 30-39.9) Is this a current diagnosis for this admission?: Yes - Additional Information Resuscitation Status: Full Code Discharge Diet: Cardiac Discharge Activity: Activity As Tolerated Home Medications: Atorvastatin Calcium [Lipitor 10 mg Tablet] 10 mg PO QHS 05/22/18 Losartan Potassium [Cozaar 100 mg Tablet] 100 mg PO DAILY 05/22/18 Metformin HCl [Glucophage XR 500 mg Tablet] 500 mg PO DAILY 05/22/18 Omeprazole 40 mg PO DAILY 05/22/18 History of Present Illness Patient complains of: This patient was admitted with intractable nausea and vomiting. She was thought to have some hematemesis however this was likely secondary to the vomiting. History of Present Illness: HILARIO LOWRY is a 48 year old female Hospital Course Hospital Course: This patient was admitted with intractable nausea and vomiting. She was thought to have some hematemesis however this was likely secondary to the vomiting. She was found to have elevated creatinine due to dehydration. She received IV fluids with improvement of her creatinine. Her nausea and vomiting has since resolved. Patient thinks that she may have had some fast food to make her sick. She has been able to tolerate her diet while in hospital. Although her hemoglobin did drop slightly this is most likely secondary to hemodilution as there was no evidence of any acute bleeding. Patient has remained hemodynamically stable and without resolution of her presenting symptoms and no further intervention has been planned she is being discharged home Patient's metformin and losartan were held due to her kidney function but they are been restarted at discharge Physical Exam Vital Signs: Temp Pulse Resp BP Pulse Ox 98.3 F 64 16 127/74 H 100 05/22/18 12:09 05/22/18 12:09 05/22/18 12:09 05/22/18 12:09 05/22/18 12:09 Intake & Output 0105/22/18 05/23/18 06:59 06:59 06:59 Intake Total 1999 3045 Output Total 550 900 Balance 1450 2145 Weight 105 kg General appearance: PRESENT: no acute distress, well-developed, well-nourished Head exam: PRESENT: atraumatic, normocephalic Eye exam: PRESENT: conjunctiva pink, EOMI, PERRLA. ABSENT: scleral icterus Ear exam: PRESENT: normal external ear exam Mouth exam: PRESENT: moist, tongue midline Neck exam: ABSENT: carotid bruit, JVD, lymphadenopathy, thyromegaly Respiratory exam: PRESENT: clear to auscultation seble. ABSENT: rales, rhonchi, wheezes Cardiovascular exam: PRESENT: RRR. ABSENT: diastolic murmur, rubs, systolic murmur Pulses: PRESENT: normal dorsalis pedis pul Vascular exam: PRESENT: normal capillary refill GI/Abdominal exam: PRESENT: normal bowel sounds, soft. ABSENT: distended, guarding, mass, organolmegaly, rebound, tenderness Rectal exam: PRESENT: deferred Extremities exam: PRESENT: full ROM. ABSENT: calf tenderness, clubbing, pedal edema Neurological exam: PRESENT: alert, awake, oriented to person, oriented to place, oriented to time, oriented to situation, CN II-XII grossly intact. ABSENT: motor sensory deficit Psychiatric exam: PRESENT: appropriate affect, normal mood. ABSENT: homicidal ideation, suicidal ideation Skin exam: PRESENT: dry, intact, warm. ABSENT: cyanosis, rash Results Laboratory Results: 05/22/18 05:49 05/22/18 05:49 05/21/18 05/21/18 05/21/18 20:40 20:40 20:55 WBC 9.3 RBC 4.25 Hgb 10.6 L Hct 32.4 L MCV 76 L MCH 25.0 L MCHC 32.8 RDW 14.7 H Plt Count 196 Seg Neutrophils % 74.8 Lymphocytes % 14.6 Monocytes % 9.6 Eosinophils % 0.5 Basophils % 0.5 Absolute Neutrophils 7.0 Absolute Lymphocytes 1.4 Absolute Monocytes 0.9 Absolute Eosinophils 0.0 Absolute Basophils 0.0 Sodium 142.6 Potassium 3.8 Chloride 105 Carbon Dioxide 27 Anion Gap 11 BUN 21 H Creatinine 1.45 H Est GFR ( Amer) 46 L Est GFR (Non-Af Amer) 38 L Glucose 95 Calcium 9.2 Magnesium Total Bilirubin 0.5 AST 23 ALT 27 Alkaline Phosphatase 101 Total Protein 7.9 Albumin 4.5 Lipase 145.7 Urine Color STRAW Urine Appearance CLEAR Urine pH 6.0 Ur Specific [place] 1.006 Urine Protein 30 H Urine Glucose (UA) NEGATIVE Urine Ketones NEGATIVE Urine Blood SMALL H Urine Nitrite NEGATIVE Ur Leukocyte Esterase NEGATIVE Urine WBC (Auto) 2 Urine RBC (Auto) 2 05/22/18 05/22/18 05:49 05:49 WBC 7.1 RBC 4.03 Hgb 9.9 L Hct 30.7 L MCV 76 L MCH 24.6 L MCHC 32.4 RDW 14.9 H Plt Count 174 Seg Neutrophils % 62.9 Lymphocytes % 27.5 Monocytes % 8.7 Eosinophils % 0.4 Basophils % 0.5 Absolute Neutrophils 4.4 Absolute Lymphocytes 1.9 Absolute Monocytes 0.6 Absolute Eosinophils 0.0 Absolute Basophils 0.0 Sodium 144.5 Potassium 4.0 Chloride 112 H Carbon Dioxide 22 Anion Gap 11 BUN 19 Creatinine 1.19 Est GFR ( Amer) 58 L Est GFR (Non-Af Amer) 48 L Glucose 85 Calcium 8.7 Magnesium 2.1 Total Bilirubin AST ALT Alkaline Phosphatase Total Protein Albumin Lipase Urine Color Urine Appearance Urine pH Ur Specific [place] Urine Protein Urine Glucose (UA) Urine Ketones Urine Blood Urine Nitrite Ur Leukocyte Esterase Urine WBC (Auto) Urine RBC (Auto) Qualifiers - * PATIENT BEING DISCHARGED WITH ANY OF THE FOLLOWING DIAGNOSIS: No Plan Discharge Plan: Home Time Spent: Less than 30 Minutes
[2018-05-22 15:59] VITALS: BP 123/63
== END 2018-05-22 16:10 | disposition home or self-care (01) | DRG 683 ==
LOC: ER 18:50 → EH 22:23 → 2N 05-22 01:00
PROVIDERS: ADMIT Emergency Medicine; ATTEND Emergency Medicine
DX: N17.9 Acute kidney failure, unspecified (principal); K92.0 Hematemesis; E11.8 Type 2 diabetes mellitus with unspecified complications; I10 Essential (primary) hypertension; E78.5 Hyperlipidemia, unspecified; E66.9 Obesity, unspecified; Z68.36 Body mass index [BMI] 36.0-36.9, adult
CPT/HCPCS: 36415; 80048; 80053; 81001; 83690; 83735; 85025; 96361; 96374; 96375; 99284; J2405; J2765; J7030; S0164

== ENCOUNTER → 2018-06-06 | Outpatient (CLI) | payer OTHER ==
--- NOTE | 2018-06-06 10:15 | WOMENS IMAGING REPORT ---
EXAM DESCRIPTION: U/S ABDOMEN TOTAL COMPLETED DATE/TIME: 06/06/2018 9:38 am REASON FOR STUDY: R11.2 NAUSEA WITH VOMITING,UNSPECIFIED R11.2 NAUSEA WITH VOMITING, UNSPECIFIED COMPARISON: None. TECHNIQUE: Dynamic and static grayscale images acquired of the abdomen and recorded on PACS. Additio nal selected color Doppler and spectral images recorded. Note: Study does not meet criteria for complete doppler/duplex scan LIMITATIONS: None. FINDINGS: PANCREAS: No masses. Visualized pancreatic duct normal caliber. LIVER: No masses. Echotexture normal. LIVER VASCULATURE: Normal directional flow of the main portal vein and hepatic veins. GALLBLADDER: No stones. Normal wall thickness. No pericholecystic fluid. ULTRASOUND-DETECTED ATWOOD'S SIGN: Negative. INTRAHEPATIC DUCTS AND COMMON DUCT: CBD and intrahepatic ducts normal caliber. No filling defects. INFERIOR VENA CAVA: Normal flow. AORTA: No aneurysm. RIGHT KIDNEY: Normal size. Normal echogenicity. No solid or suspicious masses. No hydronephros is. No calcifications. LEFT KIDNEY: Normal size. Normal echogenicity. No solid or suspicious masses. No hydronephrosi s. No calcifications. SPLEEN: Normal size. No solid masses. PERITONEAL AND PLEURAL SPACES: No ascites or effusions. OTHER: No other significant finding. IMPRESSION: NORMAL ABDOMINAL ULTRASOUND. TECHNICAL DOCUMENTATION: JOB ID: [id number] [email or web address]- All Rights Reserved Reading location - IP/workstation name: [email or web address]
== END ==
LOC: WI 09:11
DX: R11.2 Nausea with vomiting, unspecified (principal)
CPT/HCPCS: 76700

== ENCOUNTER → 2018-07-06 | Outpatient (CLI) | payer OTHER ==
[2018-07-06 17:53] LABS: ABSOLUTE EOSINOPHILS # (AUTO) 0.1 10^3/uL (0.0-0.6); ABSOLUTE LYMPHOCYTES (AUTO) 1.8 10^3/uL (0.5-4.7); ABSOLUTE MONOCYTES (AUTO) 0.3 10^3/uL (0.1-1.4); ABSOLUTE NEUT (AUTO) 2.7 10^3/uL (1.7-8.2); BASOPHILS % (AUTO) 0.4 % (0-2); EOSINOPHILS % (AUTO) 1.8 % (0-6); HEMATOCRIT 30.6 % (36.0-47.0); HEMOGLOBIN 10.1 g/dL (12.0-15.5); LYMPHOCYTES % (AUTO) 36.6 % (13-45); MEAN CORPUSCULAR HEMOGLOBIN 25.1 pg (27.0-33.4); MEAN CORPUSCULAR VOLUME 76 fl (80-97); MONOCYTES % (AUTO) 6.3 % (3-13); PLATELET COUNT 217 10^3/uL (150-450); RED BLOOD COUNT 4.03 10^6/uL (3.72-5.28); RED CELL DISTRIBUTION WIDTH 15.5 % (11.5-14.0); SEGMENTED NEUTROPHILS % (AUTO) 54.9 % (42-78); TOTAL CELLS COUNTED % (AUTO) 100 %
[2018-07-06 18:12] LABS: ANION GAP 15 (5-19); BLOOD UREA NITROGEN 14 mg/dL (7-20); CALCIUM 9.3 mg/dL (8.4-10.2); CARBON DIOXIDE 24 mmol/L (22-30); CHLORIDE 103 mmol/L (98-107); GLUCOSE 131 mg/dL (75-110); IRON(TIBC) 20.5 ug/dL (37-170); POTASSIUM 3.5 mmol/L (3.6-5.0); SODIUM 141.8 mmol/L (137-145)
== END ==
LOC: CCC 16:29
DX: E11.8 Type 2 diabetes mellitus with unspecified complications (principal); D50.9 Iron deficiency anemia, unspecified
CPT/HCPCS: 36415; 80048; 82728; 83036; 83540; 83550; 85025

== ENCOUNTER → 2018-07-20 | Outpatient (CLI) | payer OTHER | LOC: CCC 08:37 | DX: E11.8 Type 2 diabetes mellitus with unspecified complications (principal); D50.9 Iron deficiency anemia, unspecified | CPT/HCPCS: 36415 ==

== ENCOUNTER → 2018-09-11 | Outpatient (CLI) | payer OTHER ==
[2018-09-11 08:54] LABS: ANION GAP 13 (5-19); BLOOD UREA NITROGEN 17 mg/dL (7-20); CALCIUM 9.1 mg/dL (8.4-10.2); CARBON DIOXIDE 25 mmol/L (22-30); CHLORIDE 105 mmol/L (98-107); GLUCOSE 85 mg/dL (75-110); POTASSIUM 3.7 mmol/L (3.6-5.0); SODIUM 142.9 mmol/L (137-145)
== END ==
LOC: CCC 07:41
DX: R73.03 Prediabetes (principal); I10 Essential (primary) hypertension
CPT/HCPCS: 36415; 80048; 83036; 84443

== ENCOUNTER 2018-12-12 10:07 | Emergency (ER) | payer OTHER ==
--- NOTE | 2018-12-12 11:21 | ER Document Report ---
ED Medical Screen (RME) - General Chief Complaint: Doesn't Feel Right Stated Complaint: LIGHT HEADED,NAUSEA Time Seen by Provider: 12/12/18 11:17 Primary Care Provider: [facility] [Primary Care Provider] - Follow up as needed Mode of Arrival: Ambulatory Information source: Patient Notes: Patient is a 48-year-old female with past medical history of hypertension presenting to the emergency department with multiple vague complaints today. Patient reports a pressure sensation that feels like a pulling in the center of her chest. She states this is reproducible with palpation and movement. She states the pain is the absolute worst when she is lying on her side. She also reports feeling a strange sensation in her head and reports that while she was at work this morning she had low blood pressure in the 90s. She reports that she takes hypertension medications and her blood pressure is usually in the 116 range systolic. She denies any radiation of the chest pain/pressure. She does report mild nausea and shortness of breath. Exam: Heart sounds S1-S2 present with no ectopy noted. Lung sounds clear and equal bilaterally. I have greeted and performed a rapid initial assessment of this patient. A comprehensive ED assessment and evaluation of the patient, analysis of test results and completion of the medical decision making process will be conducted by additional ED providers. I have specifically instructed the patient or family members with the patient to immediately return to any nursing staff should anything change in the patient's condition or with their chief complaint. This medical record was dictated with voice recognizing software. There may be grammatical, syntax errors that are unintended. TRAVEL OUTSIDE OF THE [place] IN LAST 30 DAYS: No - Related Data Allergies/Adverse Reactions: Iodinated Contrast- Oral and IV Dye [IV Dye, Iodine Containing] Allergy (Severe, Verified 12/12/18 10:11) Swelling of Throat lisinopril Allergy (Verified 12/12/18 10:11) morphine [Morphine] Adverse Reaction (Intermediate, Verified 12/12/18 10:11) throat swelling Pork/Porcine Containing Products Adverse Reaction (Verified 12/12/18 10:11) pork Allergy (Unknown, Uncoded 12/12/18 10:11) Past Medical History - Past Medical History Cardiac Medical History: Reports: Hx Hypercholesterolemia, Hx Hypertension Denies: Hx Coronary Artery Disease, Hx Heart Attack Pulmonary Medical History: Denies: Hx Asthma, Hx Bronchitis, Hx COPD, Hx Pneumonia Neurological Medical History: Denies: Hx Cerebrovascular Accident, Hx Seizures Endocrine Medical History: Reports: Hx Diabetes Mellitus Type 2 - pre. Denies: Hx Diabetes Mellitus Type 1, Hx Hyperthyroidism, Hx Hypothyroidism Renal/ Medical History: Denies: Hx Peritoneal Dialysis GI Medical History: Reports: Hx Gastroesophageal Reflux Disease Musculoskeltal Medical History: Denies Hx Arthritis, Denies Hx Gout Skin Medical History: Denies Hx Eczema, Denies Hx Psoriasis Past Surgical History: Reports: Hx Hysterectomy, Hx Tubal Ligation, Other - EGD performed within the last year. - Immunizations Immunizations up to date: Yes Hx Diphtheria, Pertussis, Tetanus Vaccination: No - unsure Physical Exam - Vital signs Vitals: Temp Pulse Resp BP Pulse Ox 98.0 F 75 16 130/64 H 100 12/12/18 10:34 12/12/18 10:34 12/12/18 10:34 12/12/18 10:34 12/12/18 10:34 Course - Vital Signs Vital signs: Temp Pulse Resp BP Pulse Ox 98.0 F 75 16 130/64 H 100 12/12/18 10:34 12/12/18 10:34 12/12/18 10:34 12/12/18 10:34 12/12/18 10:34 Doctor's Discharge - Discharge Referrals: [facility] [Primary [facility]] - Follow up as needed
[2018-12-12 12:15] LABS: ABSOLUTE EOSINOPHILS # (AUTO) 0.1 10^3/uL (0.0-0.6); ABSOLUTE LYMPHOCYTES (AUTO) 1.6 10^3/uL (0.5-4.7); ABSOLUTE MONOCYTES (AUTO) 0.6 10^3/uL (0.1-1.4); ABSOLUTE NEUT (AUTO) 3.7 10^3/uL (1.7-8.2); BASOPHILS % (AUTO) 0.6 % (0-2); EOSINOPHILS % (AUTO) 1.2 % (0-6); HEMATOCRIT 36.7 % (36.0-47.0); LYMPHOCYTES % (AUTO) 27.3 % (13-45); MEAN CORPUSCULAR HEMOGLOBIN 27.5 pg (27.0-33.4); MEAN CORPUSCULAR HGB CONC 32.7 g/dL (32.0-36.0); MEAN CORPUSCULAR VOLUME 84 fl (80-97); MONOCYTES % (AUTO) 9.2 % (3-13); PLATELET COUNT 202 10^3/uL (150-450); RED BLOOD COUNT 4.37 10^6/uL (3.72-5.28); RED CELL DISTRIBUTION WIDTH 15.6 % (11.5-14.0); SEGMENTED NEUTROPHILS % (AUTO) 61.7 % (42-78); TOTAL CELLS COUNTED % (AUTO) 100 %
[2018-12-12 12:16] LABS: APPEARANCE,URINE CLEAR; BILIRUBIN,URINE NEGATIVE (NEGATIVE); COLOR,URINE COLORLESS; GLUCOSE, URINE NEGATIVE (NEGATIVE); KETONES,URINE NEGATIVE (NEGATIVE); LEUKOCYTE ESTERASE,URINE NEGATIVE (NEGATIVE); NITRITE,URINE NEGATIVE (NEGATIVE); PROTEIN,URINE NEGATIVE (NEGATIVE); URINE SPECIFIC GRAVITY 1.002; UROBILINOGEN,URINE NEGATIVE mg/dL (<2.0)
[2018-12-12 12:36] LABS: ALBUMIN 4.6 g/dL (3.5-5.0); ALKALINE PHOSPHATASE 102 U/L (38-126); ANION GAP 12 (5-19); ASPARTATE AMINO TRANSFERASE 26 U/L (14-36); BILIRUBIN,DIRECT 0.4 mg/dL (0.0-0.4); BILIRUBIN,TOTAL 0.8 mg/dL (0.2-1.3); BLOOD UREA NITROGEN 12 mg/dL (7-20); CALCIUM 9.6 mg/dL (8.4-10.2); CARBON DIOXIDE 26 mmol/L (22-30); CHLORIDE 103 mmol/L (98-107); GLUCOSE 77 mg/dL (75-110); POTASSIUM 4.1 mmol/L (3.6-5.0); TOTAL PROTEIN 8.4 g/dL (6.3-8.2)
--- NOTE | 2018-12-12 12:37 | RADIOLOGY REPORT (SQ) ---
EXAM DESCRIPTION: CHEST 2 VIEWS COMPLETED DATE/TIME: 12/12/2018 12:16 pm REASON FOR STUDY: chest pressure COMPARISON: 09/24/2013 EXAM PARAMETERS: NUMBER OF VIEWS: two views TECHNIQUE: Digital Frontal and Lateral radiographic views of the chest acquired. RADIATION DOSE: NA LIMITATIONS: none FINDINGS: LUNGS AND PLEURA: No opacities, masses or pneumothorax. No pleural effusion. MEDIASTINUM AND HILAR STRUCTURES: No masses or contour abnormalities. HEART AND VASCULAR STRUCTURES: Heart normal size. No evidence for failure. BONES: No acute findings. HARDWARE: None in the chest. OTHER: No other significant finding. IMPRESSION: NO ACUTE RADIOGRAPHIC FINDING IN THE CHEST. TECHNICAL DOCUMENTATION: JOB ID: [id number] [email or web address]- All Rights Reserved Reading location - IP/workstation name: [email or web address]
--- NOTE | 2018-12-12 12:40 | EKG REPORT ---
SEVERITY:- BORDERLINE ECG - SINUS RHYTHM PROBABLE LEFT ATRIAL ABNORMALITY : Confirmed by: Everardo Mitchell MD 12-Dec-2018 12:39:41
[2018-12-12] MEDS ORDERED: NORMAL SALINE 1000 ML 1,000 ML IV ONE (14:12)
--- NOTE | 2018-12-12 14:22 | ER Document Report ---
ED General - General Chief Complaint: Doesn't Feel Right Stated Complaint: LIGHT HEADED,NAUSEA Time Seen by Provider: 12/12/18 11:17 [facility]: [facility] [Primary Care Provider] - Follow up as needed Mode of Arrival: Ambulatory TRAVEL OUTSIDE OF THE [place] IN LAST 30 DAYS: No - HPI Patient complains to provider of: light headed Onset/Duration: Better Quality of pain: No pain Pain Level: Denies Notes: 48 y/o presenting to ED for episode of tremulousness, lightheadedness and not feeling right that happened today and last night she is a dm on metformin she also has a h/o htn and hld she denies arm/leg weakness or numbness she denies speech difficulty or gait difficulty she tells me she feels better now but is not sure what has changed she reports attempting to lose weight and follow strict diabetic diet recently and has had a previous episode that was similar in symptoms and attributed to hypoglycemia - Related Data Allergies/Adverse Reactions: Iodinated Contrast- Oral and IV Dye [IV Dye, Iodine Containing] Allergy (Severe, Verified 12/12/18 10:11) Swelling of Throat lisinopril Allergy (Verified 12/12/18 10:11) morphine [Morphine] Adverse Reaction (Intermediate, Verified 12/12/18 10:11) throat swelling Pork/Porcine Containing Products Adverse Reaction (Verified 12/12/18 10:11) pork Allergy (Unknown, Uncoded 12/12/18 10:11) Past Medical History - General Information source: Patient - Social History Smoking Status: Never Smoker Frequency of alcohol use: None Drug Abuse: None Family History: DM, Hypertension Patient has suicidal ideation: No Patient has homicidal ideation: No - Past Medical History Cardiac Medical History: Reports: Hx Hypercholesterolemia, Hx Hypertension Denies: Hx Coronary Artery Disease, Hx Heart Attack Pulmonary Medical History: Denies: Hx Asthma, Hx Bronchitis, Hx COPD, Hx Pneumonia Neurological Medical History: Denies: Hx Cerebrovascular Accident, Hx Seizures Endocrine Medical History: Reports: Hx Diabetes Mellitus Type 2 - pre. Denies: Hx Diabetes Mellitus Type 1, Hx Hyperthyroidism, Hx Hypothyroidism Renal/ Medical History: Denies: Hx Peritoneal Dialysis GI Medical History: Reports: Hx Gastroesophageal Reflux Disease Musculoskeletal Medical History: Denies Hx Arthritis, Denies Hx Gout Skin Medical History: Denies Hx Eczema, Denies Hx Psoriasis Past Surgical History: Reports: Hx Hysterectomy, Hx Tubal Ligation, Other - EGD performed within the last year. - Immunizations Immunizations up to date: Yes Hx Diphtheria, Pertussis, Tetanus Vaccination: No - unsure Review of Systems - Review of Systems Constitutional: No symptoms reported EENT: No symptoms reported Cardiovascular: Lightheaded Respiratory: No symptoms reported Gastrointestinal: No symptoms reported Genitourinary: No symptoms reported Female Genitourinary: No symptoms reported Musculoskeletal: No symptoms reported Skin: No symptoms reported Hematologic/Lymphatic: No symptoms reported Neurological/Psychological: Tremor, Other - light headed Physical Exam - Vital signs Vitals: Temp Pulse Resp BP Pulse Ox 98.0 F 75 16 130/64 H 100 12/12/18 10:34 12/12/18 10:34 12/12/18 10:34 12/12/18 10:34 12/12/18 10:34 Interpretation: Normal - General General appearance: Appears well, Alert - HEENT Head: Normocephalic, Atraumatic Eyes: Normal Pupils: PERRL - Respiratory Respiratory status: No respiratory distress Chest status: Nontender Breath sounds: Normal Chest palpation: Normal - Cardiovascular Rhythm: Regular Heart sounds: Normal auscultation Murmur: No - Abdominal Inspection: Normal Distension: No distension Bowel sounds: Normal Tenderness: Nontender Organomegaly: No organomegaly - Back Back: Normal, Nontender - Extremities General upper extremity: Normal inspection, Nontender, Normal color, Normal ROM, Normal temperature General lower extremity: Normal inspection, Nontender, Normal color, Normal ROM, Normal temperature, Normal weight bearing. No: Gino's sign - Neurological Neuro grossly intact: Yes Cognition: Normal Orientation: AAOx4 [place] Coma Scale Eye Opening: Spontaneous Rickie Coma Scale Verbal: Oriented Tyler Coma Scale Motor: Obeys Commands Tyler Coma Scale Total: 15 Speech: Normal Cranial nerves: Normal Cerebellar coordination: Normal Motor strength normal: LUE, RUE, LLE, RLE Additional motor exam normals: Equal foreign language interpreter. No: Involuntary movements Sensory: Normal - Psychological Associated symptoms: Normal affect, Normal mood - Skin Skin Temperature: Warm Skin Moisture: Dry Skin Color: Normal Course - Re-evaluation Re-evalutation: 12/12/18 14:21 patient presents w/ nonspecific symptoms EKG normal sinus labs reassuring although glucose in 70's and patient has eaten since episode. possibly another hypoglycemic episode? i will check a second troponin given her nonspecific symptoms, let her eat, and hydrate w/ ivf plan will be to stop her metformin altogethr until seen by primary doctor 12/12/18 16:39 repeat troponin ok she continues to feel normally will discharge with primary care follow up educated on eating a balanced diet even when trying to lose weight and discussed stopping metformin - Vital Signs Vital signs: Temp Pulse Resp BP Pulse Ox 98.0 F 75 16 130/64 H 100 12/12/18 10:34 12/12/18 10:34 12/12/18 10:34 12/12/18 10:34 12/12/18 10:34 - Laboratory Result Diagrams: 12/12/18 11:40 12/12/18 11:40 Laboratory results interpreted by me: 12/12/18 12/12/18 12/12/18 11:40 11:40 11:40 RDW 15.6 H Total Protein 8.4 H Urine Blood SMALL H - Diagnostic Test Radiology reviewed: Reports reviewed - cxr normal - EKG Interpretation by Me EKG shows normal: Sinus rhythm Rate: Normal - 80 Rhythm: NSR [place]/QRS: No: Right axis deviation, Left axis deviation, RBBB, LBBB, IVCD, LAHB/LAFB, LPHB/LPFB, Bifasicular block Voltage: No: Increased voltage, Consistant with LVH, Decreased voltage, Throughout, Limb leads P Waves: No: TERRANCE, LAE, Absent, AV Dissociation, Other Discharge - Discharge Clinical Impression: Light headed, Elevated blood pressure reading Condition: Stable Disposition: HOME, SELF-CARE Instructions: Dizziness ([facility]), Hypoglycemia ([facility]) Additional Instructions: please hold metformin until seen by your primary doctor Referrals: [facility] [Primary Care Provider] - Follow up as needed
[2018-12-12 16:59] VITALS: BP 110/75
== END 2018-12-12 17:00 | disposition home or self-care (01) ==
LOC: ER 10:07
DX: R42 Dizziness and giddiness (principal); I10 Essential (primary) hypertension; R25.1 Tremor, unspecified; R73.03 Prediabetes; Z79.84 Long term (current) use of oral hypoglycemic drugs; Z91.041 Radiographic dye allergy status; Z88.8 Allergy status to other drugs, medicaments and biological substances; Z91.018 Allergy to other foods
CPT/HCPCS: 93005; 99284; 96360; 36415; 85025; 80053; 81001; 84484; 71046; 93010; J7030

== ENCOUNTER 2019-03-17 15:56 | Emergency (ER) | payer SELFPAY ==
[2019-03-17] MEDS ORDERED: MECLIZINE HCL 25 MG TABLET PO ONE (16:03)
[2019-03-17] MEDS ORDERED: ONDANSETRON HCL INJ/PF 4 MG/2 ML SDV IV ONE (16:03)
--- NOTE | 2019-03-17 16:05 | ER Document Report ---
ED Medical Screen (RME) - General Chief Complaint: Dizziness Stated Complaint: DIZZINESS Time Seen by Provider: 03/17/19 15:59 Primary Care Provider: CHILO ESPINOZA [Primary Care Provider] - Follow up as needed Information source: Patient Notes: Patient presents complaining of dizziness that started around 1130 this morning. Patient reports palpitations and feeling nauseated. Patient reports vomiting several times today. Patient denies any chest pain, shortness of breath or headache symptoms. Patient describes the dizziness as feeling off balance. Patient also reports hearing a rushing, running sensation in the left ear. I have greeted and performed a rapid initial assessment of this patient. A comprehensive ED assessment and evaluation of the patient, analysis of test results and completion of the medical decision making process will be conducted by additional ED providers. TRAVEL OUTSIDE OF THE [place] IN LAST 30 DAYS: No - Related Data Allergies/Adverse Reactions: Iodinated Contrast Media [IV Dye, Iodine Containing] Allergy (Severe, Verified 12/12/18 10:11) Swelling of Throat lisinopril Allergy (Verified 12/12/18 10:11) morphine [Morphine] Adverse Reaction (Intermediate, Verified 12/12/18 10:11) throat swelling Pork/Porcine Containing Products Adverse Reaction (Verified 12/12/18 10:11) pork Allergy (Unknown, Uncoded 12/12/18 10:11) Past Medical History - Past Medical History Cardiac Medical History: Reports: Hx Hypercholesterolemia, Hx Hypertension Denies: Hx Coronary Artery Disease, Hx Heart Attack Pulmonary Medical History: Denies: Hx Asthma, Hx Bronchitis, Hx COPD, Hx Pneumonia Neurological Medical History: Denies: Hx Cerebrovascular Accident, Hx Seizures Endocrine Medical History: Reports: Hx Diabetes Mellitus Type 2 - pre. Denies: Hx Diabetes Mellitus Type 1, Hx Hyperthyroidism, Hx Hypothyroidism Renal/ Medical History: Denies: Hx Peritoneal Dialysis GI Medical History: Reports: Hx Gastroesophageal Reflux Disease Musculoskeltal Medical History: Denies Hx Arthritis, Denies Hx Gout Skin Medical History: Denies Hx Eczema, Denies Hx Psoriasis Past Surgical History: Reports: Hx Hysterectomy, Hx Tubal Ligation, Other - EGD performed within the last year. - Immunizations Immunizations up to date: Yes Hx Diphtheria, Pertussis, Tetanus Vaccination: No - unsure Physical Exam - Cardiovascular Rhythm: Regular. No: Tachycardia Heart sounds: S1 appreciated, S2 appreciated Doctor's Discharge - Discharge Referrals: [facility] [Primary Care Provider] - Follow up as needed
--- NOTE | 2019-03-17 17:25 | ER Document Report ---
ED Dizziness/Weakness - General Chief Complaint: Dizziness Stated Complaint: DIZZINESS Time Seen by Provider: 03/17/19 15:59 Primary Care Provider: [facility] [Primary Care Provider] - Follow up as needed Information source: Patient Notes: 49-year-old woman presents to the emergency department with a history of dizziness, nausea and vomiting with a history of vertigo in the past. She complains of headache and apparently hit her head on the refrigerator today accidentally with a worsening of symptoms. She denies loss of consciousness, neck pain or other associated injury. TRAVEL OUTSIDE OF THE [place] IN LAST 30 DAYS: No - Related Data Allergies/Adverse Reactions: Iodinated Contrast Media [IV Dye, Iodine Containing] Allergy (Severe, Verified 12/12/18 10:11) Swelling of Throat lisinopril Allergy (Verified 12/12/18 10:11) morphine [Morphine] Adverse Reaction (Intermediate, Verified 12/12/18 10:11) throat swelling Pork/Porcine Containing Products Adverse Reaction (Verified 12/12/18 10:11) pork Allergy (Unknown, Uncoded 12/12/18 10:11) Past Medical History - General Information source: Patient - Social History Smoking Status: Never Smoker Chew tobacco use (# tins/day): No Frequency of alcohol use: Rare Drug Abuse: None Family History: DM, Hypertension Patient has suicidal ideation: No Patient has homicidal ideation: No - Past Medical History Cardiac Medical History: Reports: Hx Hypercholesterolemia, Hx Hypertension Denies: Hx Coronary Artery Disease, Hx Heart Attack Pulmonary Medical History: Denies: Hx Asthma, Hx Bronchitis, Hx COPD, Hx Pneumonia Neurological Medical History: Denies: Hx Cerebrovascular Accident, Hx Seizures Endocrine Medical History: Reports: Hx Diabetes Mellitus Type 2 - pre. Denies: Hx Diabetes Mellitus Type 1, Hx Hyperthyroidism, Hx Hypothyroidism Renal/ Medical History: Denies: Hx Peritoneal Dialysis GI Medical History: Reports: Hx Gastroesophageal Reflux Disease Musculoskeletal Medical History: Denies Hx Arthritis, Denies Hx Gout Skin Medical History: Denies Hx Eczema, Denies Hx Psoriasis Past Surgical History: Reports: Hx Hysterectomy, Hx Tubal Ligation, Other - EGD performed within the last year. - Immunizations Immunizations up to date: Yes Hx Diphtheria, Pertussis, Tetanus Vaccination: No - unsure Review of Systems - Review of Systems Notes: REVIEW OF SYSTEMS GENERAL: +nausea, +vomiting, no fevers, chills, or weight loss. NEUROLOGIC: + headache, negative for any blurry vision, blind spots, double vision, facial asymmetry, dysphagia, dysarthria, hemiparesis, hemisensory deficits, vertigo, ataxia. HEENT: bilateral ear fullness, +right ear with humming, negative for any head trauma, neck trauma, neck stiffness, photophobia, phonophobia, sinusitis, rhinitis. CARDIAC: Negative for any chest pain, dyspnea on exertion, paroxysmal nocturnal dyspnea, peripheral edema. PULMONARY: Negative for any shortness of breath, wheezing, COPD, or TB exposure. GASTROINTESTINAL: Negative for any abdominal pain, nausea, vomiting, bright red blood per rectum, melena. GENITOURINARY: Negative for any dysuria, hematuria, incontinence. INTEGUMENTARY: Negative for any rashes, cuts, insect bites. RHEUMATOLOGIC: Negative for any joint pains, photosensitive rashes, history of vasculitis or kidney problems. HEMATOLOGIC: Negative for any abnormal bruising, frequent infections or bleeding. Physical Exam - Vital signs Vitals: Temp Pulse Resp BP Pulse Ox 97.9 F 90 20 170/85 H 100 03/17/19 16:01 03/17/19 16:01 03/17/19 16:01 03/17/19 16:01 03/17/19 16:01 - Notes Notes: Reviewed vital signs and nursing note as charted by RN. CONSTITUTIONAL: Well-appearing, well-nourished; attentive, alert and interactive with good eye contact, answers questions appropriately HEAD: Normocephalic; atraumatic; No swelling EYES: PERRL; Conjunctivae clear, no drainage; EOMI ENT: External ears without lesions; External auditory canal is patent; TMs bilateral dull tympanic membranes, air-fluid levels, positive blood pressures noted on the right side, landmarks clear and well visualized; no rhinorrhea; P harynx without erythema or lesions, no tonsillar hypertrophy, airway patent, mucous membranes pink and moist NECK: Supple, no cervical lymphadenopathy, no masses CARD: Regular rate and rhythm; no murmurs, no rubs, no gallops, capillary refill < 2 seconds, symmetric pulses RESP: Respiratory rate and effort are normal. There is normal chest excursion. No respiratory distress, no retractions, no stridor, no nasal flaring, no accessory muscle use. The lungs are clear to auscultation bilaterally, no wheezing, no rales, no rhonchi. ABD/GI: Normal bowel sounds; non-distended; soft, non-tender, no rebound, no guarding, no palpable organomegaly EXT: Normal ROM in all joints; non-tender to palpation; no effusions, no edema SKIN: Normal color for age and race; warm; dry; good turgor; no acute lesions noted NEURO: No facial asymmetry; Moves all extremities equally; Motor and sensory function intact Course - Re-evaluation Re-evalutation: 03/17/19 20:46 Patient has improved somewhat with fluids and medications, CT scan reveals a chronic sinusitis, bilateral serous otitis media, vertigo. Patient will be treated with Augmentin, Zofran, and tramadol. I have explained to her that it will be a gradual improvement course she could continue the meclizine as well and that she can follow-up with her primary care doctor on Tuesday if she is not significantly improved. The patient acknowledges this plan and is in agreement. - Vital Signs Vital signs: Temp Pulse Resp BP Pulse Ox 98.4 F 65 13 141/73 H 100 03/17/19 17:29 03/17/19 17:29 03/17/19 19:01 03/17/19 19:01 03/17/19 19:01 - Laboratory Result Diagrams: 03/17/19 17:53 03/17/19 17:53 Laboratory results interpreted by me: 03/17/19 17:53 Total Protein 9.0 H - EKG Interpretation by Wy EKG shows normal: Sinus rhythm - Rate 64 Rate: Normal Rhythm: NSR When compared to previous EKG there are: No significant change Additional EKG results interpreted by me: 03/17/19 18:50 Normal electrocardiogram. Discharge - Discharge Clinical Impression: Vertigo Sinusitis Qualifiers: Sinusitis location: frontal Chronicity: chronic Qualified Code(s): J32.1 - Chronic frontal sinusitis Bilateral otitis media Qualifiers: Otitis media type: serous Chronicity: unspecified Qualified Code(s): H65.93 - Unspecified nonsuppurative otitis media, bilateral Condition: Good Disposition: HOME, SELF-CARE Instructions: Meclizine ([facility]), Antinausea Medication ([facility]) Referrals: [facility] [Primary Care Provider] - Follow up as needed
[2019-03-17] MEDS ORDERED: NORMAL SALINE 1000 ML 1,000 ML IV PRN (17:31)
[2019-03-17 18:27] LABS: ABSOLUTE LYMPHOCYTES (AUTO) 1.2 10^3/uL (0.5-4.7); ABSOLUTE MONOCYTES (AUTO) 0.4 10^3/uL (0.1-1.4); ABSOLUTE NEUT (AUTO) 3.6 10^3/uL (1.7-8.2); BASOPHILS % (AUTO) 0.5 % (0-2); EOSINOPHILS % (AUTO) 0.8 % (0-6); HEMATOCRIT 38.1 % (36.0-47.0); HEMOGLOBIN 12.6 g/dL (12.0-15.5); MEAN CORPUSCULAR HGB CONC 33.2 g/dL (32.0-36.0); MEAN CORPUSCULAR VOLUME 84 fl (80-97); MONOCYTES % (AUTO) 7.1 % (3-13); PLATELET COUNT 207 10^3/uL (150-450); RED BLOOD COUNT 4.51 10^6/uL (3.72-5.28); RED CELL DISTRIBUTION WIDTH 13.3 % (11.5-14.0); SEGMENTED NEUTROPHILS % (AUTO) 69.6 % (42-78); TOTAL CELLS COUNTED % (AUTO) 100 %; WHITE BLOOD COUNT 5.2 10^3/uL (4.0-10.5)
[2019-03-17 18:44] LABS: ALBUMIN 4.7 g/dL (3.5-5.0); ALKALINE PHOSPHATASE 114 U/L (38-126); ANION GAP 11 (5-19); ASPARTATE AMINO TRANSFERASE 24 U/L (14-36); BILIRUBIN,DIRECT 0.2 mg/dL (0.0-0.4); BILIRUBIN,TOTAL 0.7 mg/dL (0.2-1.3); BLOOD UREA NITROGEN 11 mg/dL (7-20); CARBON DIOXIDE 27 mmol/L (22-30); CHLORIDE 102 mmol/L (98-107); GLUCOSE 104 mg/dL (75-110); POTASSIUM 3.6 mmol/L (3.6-5.0)
[2019-03-17] MEDS ORDERED: PROCHLORPERAZINE EDISYLATE INJ 10 MG/2 ML VIAL IV ONE (18:55)
--- NOTE | 2019-03-17 19:45 | RADIOLOGY REPORT (SQ) ---
EXAM DESCRIPTION: CT HEAD WITHOUT COMPLETED DATE/TIME: 03/17/2019 6:10 pm REASON FOR STUDY: Headache, dizziness COMPARISON: None. TECHNIQUE: Axial images acquired through the brain without intravenous contrast. Images reviewed wi th bone, brain and subdural windows. Images stored on PACS. All CT scanners at this facility use dose modulation, iterative reconstruction, and/or weight based d osing when appropriate to reduce radiation dose to as low as reasonably achievable (ALARA). [facility]: Dose Right [facility]: CareDose [facility]: Dose Right [facility]: Teradose 4D [facility]: [employer] RADIATION DOSE: CT Rad equipment meets quality standard of care and radiation dose reduction techniq ues were employed. CTDIvol: 53.2 mGy. DLP: 1177 mGy-cm. mGy. LIMITATIONS: None. FINDINGS: VENTRICLES: Normal size and contour. CEREBRUM: No masses. No hemorrhage. No midline shift. No evidence for acute infarction. Normal gra y/white matter differentiation. No areas of low density in the white matter. CEREBELLUM: No masses. No hemorrhage. No alteration of density. No evidence for acute infarction. EXTRAAXIAL SPACES: No fluid collections. No masses. ORBITS AND GLOBE: No intra- or extraconal masses. Normal contour of globe without masses. CALVARIUM: No fracture. PARANASAL SINUSES: Mucosal thickening in the floor both maxillary antra. SOFT TISSUES: No mass or hematoma. OTHER: No other significant finding. IMPRESSION: CHRONIC SINUSITIS. NORMAL BRAIN CT WITHOUT CONTRAST. EVIDENCE OF ACUTE STROKE: NO. COMMENT: Quality ID # [id number]: Final reports with documentation of one or more dose reduction techniques (e.g., Automated exposure control, adjustment of the mA and/or kV according to patient size, use of iterative reconstruction technique) TECHNICAL DOCUMENTATION: JOB ID: [id number] 2010 [employer]- All Rights Reserved Reading location - IP/workstation name: CM
--- NOTE | 2019-03-17 20:01 | RADIOLOGY REPORT (SQ) ---
EXAM DESCRIPTION: CHEST 2 VIEWS COMPLETED DATE/TIME: 03/17/2019 6:36 pm REASON FOR STUDY: PALPATIATIONS/ DIZZZY COMPARISON: 12/12/2018. EXAM PARAMETERS: NUMBER OF VIEWS: two views TECHNIQUE: Digital Frontal and Lateral radiographic views of the chest acquired. RADIATION DOSE: NA LIMITATIONS: none FINDINGS: LUNGS AND PLEURA: No opacities, masses or pneumothorax. No pleural effusion. MEDIASTINUM AND HILAR STRUCTURES: No masses or contour abnormalities. HEART AND VASCULAR STRUCTURES: Heart normal size. No evidence for failure. BONES: No acute findings. HARDWARE: None in the chest. OTHER: No other significant finding. IMPRESSION: No acute disease. TECHNICAL DOCUMENTATION: JOB ID: [id number] [id number] 2010 [employer]- All Rights Reserved Reading location - IP/workstation name: CM
[2019-03-17 21:07] VITALS: BP 132/68
--- NOTE | 2019-03-17 21:37 | EKG REPORT ---
SEVERITY:- NORMAL ECG - SINUS RHYTHM : Confirmed by: Stephanie Guerra 17-Mar-2019 21:37:02
== END 2019-03-17 21:00 | disposition home or self-care (01) ==
LOC: ER 15:56
DX: R42 Dizziness and giddiness (principal); J32.1 Chronic frontal sinusitis; H65.93 Unspecified nonsuppurative otitis media, bilateral; R11.2 Nausea with vomiting, unspecified; R51 Headache; E78.00 Pure hypercholesterolemia, unspecified; I10 Essential (primary) hypertension; E11.9 Type 2 diabetes mellitus without complications; Z90.710 Acquired absence of both cervix and uterus; Z88.6 Allergy status to analgesic agent
CPT/HCPCS: 93005; 36415; 85025; 80053; 84484; 71046; 70450; 93010; J0780; J2405; J7030; 96361; 96374; 96375; 99284

== ENCOUNTER 2019-07-11 07:25 | Emergency (ER) | payer MEDICAID ==
--- NOTE | 2019-07-11 08:29 | ER Document Report ---
ED General - General Chief Complaint: Chest Pain > 30 Stated Complaint: HIGH BLOOD PRESSURE Time Seen by Provider: 07/11/19 08:10 Primary Care Provider: [facility] [NO LOCAL MD] - Follow up as needed TRAVEL OUTSIDE OF THE [place] IN LAST 30 DAYS: No - HPI Notes: Patient is a 49-year-old female with a history of hypercholesterolemia, GERD, and hypertension presents complaining of chest pain this morning felt like a tightness and something stuck in her throat that has since resolved. Patient states that she does feel some achiness to the muscles of her left side of her neck area as well. She is not aware of anything that worsens or improves her symptoms. She has been ambulatory without any worsening symptoms. She is able to eat and drink without difficulty. She is urinating normally and having normal bowel movements. No history of CAD. Denies any prolonged immobilization, distance travel, recent surgery/trauma, personal cancer history, hormone use, or previous DVT/PE. Denies any headache, fever, neck pain, URI, sore throat, palpitations, syncope, cough, shortness of breath, wheeze, dyspnea, abdominal pain, nausea/vomiting/diarrhea, urinary retention, dysuria, hematuria, or rash. - Related Data Allergies/Adverse Reactions: Iodinated Contrast Media [IV Dye, Iodine Containing] Allergy (Severe, Verified 07/11/19 07:45) Swelling of Throat lisinopril Allergy (Verified 07/11/19 07:45) morphine [Morphine] Adverse Reaction (Intermediate, Verified 07/11/19 07:45) throat swelling Pork/Porcine Containing Products Adverse Reaction (Verified 07/11/19 07:45) pork Allergy (Unknown, Uncoded 07/11/19 07:45) Past Medical History - Social History Smoking Status: Unknown if Ever Smoked Family History: DM, Hypertension - Past Medical History Cardiac Medical History: Reports: Hx Hypercholesterolemia, Hx Hypertension Denies: Hx Coronary Artery Disease, Hx Heart Attack Pulmonary Medical History: Denies: Hx Asthma, Hx Bronchitis, Hx COPD, Hx Pneumonia Neurological Medical History: Denies: Hx Cerebrovascular Accident, Hx Seizures Endocrine Medical History: Reports: Hx Diabetes Mellitus Type 2 - pre. Denies: Hx Diabetes Mellitus Type 1, Hx Hyperthyroidism, Hx Hypothyroidism Renal/ Medical History: Denies: Hx Peritoneal Dialysis GI Medical History: Reports: Hx Gastroesophageal Reflux Disease Musculoskeletal Medical History: Denies Hx Arthritis, Denies Hx Gout Skin Medical History: Denies Hx Eczema, Denies Hx Psoriasis Past Surgical History: Reports: Hx Hysterectomy, Hx Tubal Ligation, Other - EGD performed within the last year. - Immunizations Immunizations up to date: Yes Hx Diphtheria, Pertussis, Tetanus Vaccination: No - unsure Review of Systems - Review of Systems -: Yes All other systems reviewed and negative Physical Exam - Vital signs Vitals: Temp Pulse Resp BP Pulse Ox 98.1 F 83 18 158/90 H 100 07/11/19 07:30 07/11/19 07:30 07/11/19 07:30 07/11/19 07:30 07/11/19 07:30 - Notes Notes: PHYSICAL EXAMINATION: GENERAL: Well-appearing, well-nourished and in no acute distress. HEAD: Atraumatic, normocephalic. EYES: Pupils equal round and reactive to light, extraocular movements intact, sclera anicteric, conjunctiva are normal. ENT: Nares patent and without discharge. oropharynx clear without exudates. No tonsilar hypertrophy or erythema. Moist mucous membranes. NECK: Normal range of motion, supple without lymphadenopathy LUNGS: Breath sounds clear to auscultation bilaterally and equal. No wheezes rales or rhonchi. HEART: Regular rate and rhythm without murmurs, rubs, gallops. ABDOMEN: Soft, nontender, nondistended abdomen. No guarding, no rebound. Normal bowel sounds present. No CVA tenderness bilaterally. Musculoskeletal: FROM to passive/active. Strength 5+/5. Gino neg. No asymmetry to LE's. Extremities: No cyanosis, clubbing, or edema b/l. Peripheral pulses 2+. Capillary refill less than 3 seconds. NEUROLOGICAL: Normal speech, normal gait. PSYCH: Normal mood, normal affect. SKIN: Warm, Dry, normal turgor, no rashes or lesions noted. Course - Re-evaluation Re-evalutation: 07/11/19 12:26 Patient is an afebrile, well-hydrated 49-year-old female who presents to the ED with resolved nonspecific chest pain. Vitals are acceptable without any significant tachycardia, tachypnea, or hypoxia. PE is otherwise unremarkable. Patient is nontoxic-appearing and is tolerating p.o. without any difficulties. Pt is currently asymptomatic. CBC, CMP, EKG/cardiac enzymes 2, chest x-ray are all unremarkable for any acute pathology. Patient has a heart score of <=3, Wells score of 0. Patient does not have any chest pain, dyspnea, or shortness of breath. Patient's presentation and symptomatology creates low suspicion for ACS, PE, pneumothorax, pericarditis, dissection, respiratory compromise, severe dehydration, sepsis, meningitis, or other systemic emergent condition at this time. Patient is aware that this condition can change from initial presentation and she needs to monitor symptoms closely and seek medical attention for any acute changes. Pt is feeling better and would like to go home. Recommend conservative measures for symptoms. Recheck with your PCM in 3-5 days. Consider consult with Cardiology. Return to the ED with any worsening/concerning symp toms otherwise as reviewed in discharge. Patient is in agreement. - Vital Signs Vital signs: Temp Pulse Resp BP Pulse Ox 98.1 F 83 17 122/78 100 07/11/19 07:30 07/11/19 07:30 07/11/19 11:01 07/11/19 11:01 07/11/19 11:01 - Laboratory Result Diagrams: 07/11/19 08:10 07/11/19 08:10 Laboratory results interpreted by me: 07/11/19 07/11/19 07/11/19 08:10 08:10 08:10 RDW 14.5 H Creatine Kinase 194 H NT-Pro-B Natriuret Pep 160 H Total Protein 8.3 H Urine Blood 07/11/19 08:25 RDW Creatine Kinase NT-Pro-B Natriuret Pep Total Protein Urine Blood SMALL H Discharge - Discharge Clinical Impression: Atypical chest pain Condition: Stable Disposition: HOME, SELF-CARE Instructions: Chest Pain of Unclear Cause ([facility]) Additional Instructions: Maintain adequate fluid and food intake Take home medications as directed Healthy diet Monitor blood pressure daily and keep a log Monitor symptoms for any acute changes Recheck with your PCM in 3-5 days Consider a follow-up with cardiology Return to the ED with any worsening symptoms and/or development of fever, headache, chest pain, palpitations, syncope, shortness of breath, trouble breathing, abdominal pain, n/v/d, blood in stool/urine, loss of control of bowel/bladder, urinary retention, muscle weakness/paralysis, numbness/tingling, or other worsening symptoms that are concerning to you. [facility]errals: [facility] [NO LOCAL MD] - Follow up as needed MONET ONEILL MD [ACTIVE STAFF] - Follow up as needed
[2019-07-11 08:37] LABS: ABSOLUTE EOSINOPHILS # (AUTO) 0.1 10^3/uL (0.0-0.6); ABSOLUTE LYMPHOCYTES (AUTO) 1.6 10^3/uL (0.5-4.7); ABSOLUTE MONOCYTES (AUTO) 0.4 10^3/uL (0.1-1.4); ABSOLUTE NEUT (AUTO) 2.4 10^3/uL (1.7-8.2); EOSINOPHILS % (AUTO) 1.3 % (0-6); HEMATOCRIT 36.1 % (36.0-47.0); HEMOGLOBIN 12.1 g/dL (12.0-15.5); LYMPHOCYTES % (AUTO) 34.9 % (13-45); MEAN CORPUSCULAR HGB CONC 33.5 g/dL (32.0-36.0); MEAN CORPUSCULAR VOLUME 84 fl (80-97); MONOCYTES % (AUTO) 9.6 % (3-13); PLATELET COUNT 207 10^3/uL (150-450); RED BLOOD COUNT 4.32 10^6/uL (3.72-5.28); RED CELL DISTRIBUTION WIDTH 14.5 % (11.5-14.0); SEGMENTED NEUTROPHILS % (AUTO) 53.2 % (42-78); TOTAL CELLS COUNTED % (AUTO) 100 %; WHITE BLOOD COUNT 4.5 10^3/uL (4.0-10.5)
[2019-07-11 08:41] LABS: APPEARANCE,URINE CLEAR; BILIRUBIN,URINE NEGATIVE (NEGATIVE); COLOR,URINE STRAW; GLUCOSE, URINE NEGATIVE (NEGATIVE); KETONES,URINE NEGATIVE (NEGATIVE); PROTEIN,URINE NEGATIVE (NEGATIVE); URINE SPECIFIC GRAVITY 1.004; UROBILINOGEN,URINE NEGATIVE mg/dL (<2.0)
[2019-07-11 08:57] LABS: ALBUMIN 4.3 g/dL (3.5-5.0); ALKALINE PHOSPHATASE 100 U/L (38-126); ANION GAP 11 (5-19); ASPARTATE AMINO TRANSFERASE 23 U/L (14-36); BILIRUBIN,DIRECT 0.2 mg/dL (0.0-0.4); BILIRUBIN,TOTAL 0.7 mg/dL (0.2-1.3); BLOOD UREA NITROGEN 11 mg/dL (7-20); CALCIUM 9.4 mg/dL (8.4-10.2); CARBON DIOXIDE 26 mmol/L (22-30); CHLORIDE 106 mmol/L (98-107); CREATINE KINASE 194 U/L (30-135); GLUCOSE 93 mg/dL (75-110); POTASSIUM 3.7 mmol/L (3.6-5.0); TOTAL PROTEIN 8.3 g/dL (6.3-8.2)
[2019-07-11 09:12] LABS: CREATINE KINASE MB 0.38 ng/mL (<4.55); NT PRO BNP 160 pg/mL (<125)
[2019-07-11 09:13] LABS: TROPONIN I < 0.012 ng/mL
--- NOTE | 2019-07-11 09:15 | RADIOLOGY REPORT (SQ) ---
EXAM DESCRIPTION: CHEST SINGLE VIEW COMPLETED DATE/TIME: 07/11/2019 8:53 am REASON FOR STUDY: CP COMPARISON: None. EXAM PARAMETERS: NUMBER OF VIEWS: One view. TECHNIQUE: An AP view of the chest was obtained. RADIATION DOSE: NA LIMITATIONS: None. FINDINGS: LUNGS AND PLEURA: No consolidation, pleural effusion or pneumothorax. MEDIASTINUM AND HILAR STRUCTURES: No mediastinal or hilar contour abnormality. HEART AND VASCULAR STRUCTURES: The cardiac silhouette and pulmonary vasculature are within normal [place] its. BONES: No acute findings. HARDWARE: None in the chest. OTHER: No other finding. IMPRESSION: No acute cardiopulmonary process. TECHNICAL DOCUMENTATION: JOB ID: [id number] 2010 [email or web address]- All Rights Reserved Reading location - IP/workstation name: [email or web address]
[2019-07-11 12:30] VITALS: BP 123/77
--- NOTE | 2019-07-11 13:26 | EKG REPORT ---
SEVERITY:- NORMAL ECG - SINUS RHYTHM : Confirmed by: Everardo Mitchell MD 11-Jul-2019 13:25:01
== END 2019-07-11 12:40 | disposition home or self-care (01) ==
LOC: ER 07:25
DX: R07.89 Other chest pain (principal); M79.18 Myalgia, other site; I10 Essential (primary) hypertension; Z91.041 Radiographic dye allergy status; Z88.8 Allergy status to other drugs, medicaments and biological substances; Z91.018 Allergy to other foods
CPT/HCPCS: 36415; 71045; 80053; 81001; 82550; 82553; 83880; 84484; 85025; 93005; 93010; 99285

== ENCOUNTER → 2019-08-13 | Outpatient (CLI) | payer MEDICAID ==
--- NOTE | 2019-08-13 14:51 | RADIOLOGY REPORT (SQ) ---
EXAM DESCRIPTION: KNEE RIGHT 3 VIEWS IMAGES COMPLETED DATE/TIME: 08/13/2019 2:39 pm REASON FOR STUDY: PAIN IN RIGHT KNEE M25.561 PAIN IN RIGHT KNEE COMPARISON: 02/11/2013 NUMBER OF VIEWS: Three views. TECHNIQUE: AP, lateral, and sunrise patella radiographic images acquired of the right knee. LIMITATIONS: None. FINDINGS: MINERALIZATION: Normal. BONES: No acute fracture or dislocation. No worrisome bone lesions. JOINT: No effusion. SOFT TISSUES: No soft tissue swelling. No radio-opaque foreign body. OTHER: No other significant finding. IMPRESSION: NEGATIVE STUDY OF THE RIGHT KNEE. NO RADIOGRAPHIC EVIDENCE OF ACUTE INJURY. TECHNICAL DOCUMENTATION: JOB ID: [id number] 2010 [employer]- All Rights Reserved Reading location - IP/workstation name: [email or web address]
== END ==
LOC: OD 14:29
PROVIDERS: ATTEND Nurse Practitioner Family
DX: M25.561 Pain in right knee (principal)

== ENCOUNTER → 2019-12-27 | Outpatient (CLI) | payer OTHER, MEDICAID ==
[2019-12-27 08:36] LABS: ABSOLUTE EOSINOPHILS # (AUTO) 0.1 10^3/uL (0.0-0.6); ABSOLUTE LYMPHOCYTES (AUTO) 1.6 10^3/uL (0.5-4.7); ABSOLUTE MONOCYTES (AUTO) 0.4 10^3/uL (0.1-1.4); ABSOLUTE NEUT (AUTO) 2.5 10^3/uL (1.7-8.2); BASOPHILS % (AUTO) 0.4 % (0-2); EOSINOPHILS % (AUTO) 1.6 % (0-6); HEMATOCRIT 34.9 % (36.0-47.0); HEMOGLOBIN 11.6 g/dL (12.0-15.5); LYMPHOCYTES % (AUTO) 34.7 % (13-45); MEAN CORPUSCULAR HEMOGLOBIN 27.5 pg (27.0-33.4); MEAN CORPUSCULAR HGB CONC 33.2 g/dL (32.0-36.0); MEAN CORPUSCULAR VOLUME 83 fl (80-97); MONOCYTES % (AUTO) 8.9 % (3-13); PLATELET COUNT 188 10^3/uL (150-450); RED BLOOD COUNT 4.23 10^6/uL (3.72-5.28); RED CELL DISTRIBUTION WIDTH 13.9 % (11.5-14.0); SEGMENTED NEUTROPHILS % (AUTO) 54.4 % (42-78); TOTAL CELLS COUNTED % (AUTO) 100 %; WHITE BLOOD COUNT 4.6 10^3/uL (4.0-10.5)
[2019-12-27 08:46] LABS: ALKALINE PHOSPHATASE 86 U/L (38-126); ANION GAP 8 (5-19); ASPARTATE AMINO TRANSFERASE 24 U/L (14-36); BILIRUBIN,TOTAL 0.7 mg/dL (0.2-1.3); BLOOD UREA NITROGEN 13 mg/dL (7-20); CALCIUM 9.2 mg/dL (8.4-10.2); CARBON DIOXIDE 26 mmol/L (22-30); CHLORIDE 108 mmol/L (98-107); CHOLESTEROL 237.11 mg/dL (0-200); GLUCOSE 95 mg/dL (75-110); POTASSIUM 3.9 mmol/L (3.6-5.0); TOTAL PROTEIN 7.6 g/dL (6.3-8.2); TRIGLYCERIDES 71 mg/dL (<150)
[2019-12-27 08:57] LABS: DIRECT LDL 142 mg/dL (<100)
== END ==
LOC: CCC 07:45
PROVIDERS: ATTEND Internal Medicine
DX: I10 Essential (primary) hypertension (principal); R73.03 Prediabetes
CPT/HCPCS: 36415; 80053; 80061; 83036; 84443; 85025

== ENCOUNTER 2020-03-17 10:15 | Emergency (ER) | payer MEDICAID, OTHER ==
--- NOTE | 2020-03-17 11:22 | ER Document Report ---
ED Medical Screen (RME) - General Stated Complaint: NAUSEA HEADACHE DIZZINESS EYES PAIN Time Seen by Provider: 03/17/20 11:16 Primary Care Provider: [facility] [Primary Care Provider] - Follow up as needed Mode of Arrival: Ambulatory Information source: Patient Notes: 50-year-old female patient presenting to the emergency department chief complaint of headache that has been constant for the last 2 days, sore throat, tickle in the back of her throat and also low back pain. Patient reports 2 other people at her work have similar symptoms. She is not sure if she wants to be tested for Covid. Lung sounds clear and equal bilaterally. No neurological deficits noted. I have greeted and performed a rapid initial assessment of this patient. A comprehensive ED assessment and evaluation of the patient, analysis of test results and completion of the medical decision making process will be conducted by additional ED providers. I have specifically instructed the patient or family members with the patient to immediately return to any nursing staff should anything change in the patient's condition or with their chief complaint. TRAVEL OUTSIDE OF THE [place] IN LAST 30 DAYS: No - Related Data Allergies/Adverse Reactions: Iodinated Contrast Media [IV Dye, Iodine Containing] Allergy (Severe, Verified 07/11/19 07:45) Swelling of Throat lisinopril Allergy (Verified 07/11/19 07:45) morphine [Morphine] Adverse Reaction (Intermediate, Verified 07/11/19 07:45) throat swelling Pork/Porcine Containing Products Adverse Reaction (Verified 07/11/19 07:45) pork Allergy (Unknown, Uncoded 07/11/19 07:45) Past Medical History - Past Medical History Cardiac Medical History: Reports: Hx Hypercholesterolemia, Hx Hypertension Denies: Hx Coronary Artery Disease, Hx Heart Attack Pulmonary Medical History: Denies: Hx Asthma, Hx Bronchitis, Hx COPD, Hx Pneumonia Neurological Medical History: Denies: Hx Cerebrovascular Accident, Hx Seizures Endocrine Medical History: Reports: Hx Diabetes Mellitus Type 2 - pre. Denies: Hx Diabetes Mellitus Type 1, Hx Hyperthyroidism, Hx Hypothyroidism Renal/ Medical History: Denies: Hx Peritoneal Dialysis GI Medical History: Reports: Hx Gastroesophageal Reflux Disease Musculoskeltal Medical History: Denies Hx Arthritis, Denies Hx Gout Skin Medical History: Denies Hx Eczema, Denies Hx Psoriasis Past Surgical History: Reports: Hx Hysterectomy, Hx Tubal Ligation, Other - EGD performed within the last year. - Immunizations Immunizations up to date: Yes Hx Diphtheria, Pertussis, Tetanus Vaccination: No - unsure Physical Exam - Vital signs Vitals: Temp Pulse Resp BP Pulse Ox 98.2 F 72 18 145/80 H 100 03/17/20 10:23 03/17/20 10:23 03/17/20 10:23 03/17/20 10:23 03/17/20 10:23 Course - Vital Signs Vital signs: Temp Pulse Resp BP Pulse Ox 98.2 F 72 18 145/80 H 100 03/17/20 10:23 03/17/20 10:23 03/17/20 10:23 03/17/20 10:23 03/17/20 10:23 Doctor's Discharge - Discharge [facility]errals: [facility] [Primary Care Provider] - Follow up as needed
[2020-03-17] MEDS ORDERED: ONDANSETRON HCL INJ/PF 4 MG/2 ML SDV IV ONE (11:23)
[2020-03-17] MEDS ORDERED: KETOROLAC TROMETHAMINE INJ/PF 30 MG/1 ML SDV IV ONE (11:26)
[2020-03-17] MEDS ORDERED: DIPHENHYDRAMINE HCL 50 MG/ML VIAL IV ONE (11:26)
[2020-03-17] MEDS ORDERED: NORMAL SALINE 1000 ML 1,000 ML IV ONE (11:26)
[2020-03-17 12:28] LABS: A TYPE INFLUENZA AG NEGATIVE (NEGATIVE); B INFLUENZA AG NEGATIVE (NEGATIVE)
--- NOTE | 2020-03-17 12:41 | ER Document Report ---
ED General - General Chief Complaint: Headache Stated Complaint: NAUSEA HEADACHE DIZZINESS EYES PAIN Time Seen by Provider: 03/17/20 11:16 Primary Care Provider: [facility] [NO LOCAL MD] - Follow up as needed Mode of Arrival: Ambulatory Notes: Patient is a 50-year-old female who presents to the emergency department with a chief complaint of generally not feeling well and tickle in the back of her throat. Patient states that she works at [employer]. She states that her 2 other coworkers are having the same symptoms. Patient has a headache frontal aspect of her head. Denies any weakness, numbness or tingling, or any other symptoms. TRAVEL OUTSIDE OF THE [place] IN LAST 30 DAYS: No - Related Data Allergies/Adverse Reactions: Iodinated Contrast Media [IV Dye, Iodine Containing] Allergy (Severe, Verified 07/11/19 07:45) Swelling of Throat lisinopril Allergy (Verified 07/11/19 07:45) morphine [Morphine] Adverse Reaction (Intermediate, Verified 07/11/19 07:45) throat swelling Pork/Porcine Containing Products Adverse Reaction (Verified 07/11/19 07:45) pork Allergy (Unknown, Uncoded 07/11/19 07:45) Home Medications: losartan, atorvastatin Past Medical History - General Information source: Patient - Social History Smoking Status: Never Smoker Chew tobacco use (# tins/day): No Frequency of alcohol use: None Drug Abuse: None Family History: DM, Hypertension - Past Medical History Cardiac Medical History: Reports: Hx Hypercholesterolemia, Hx Hypertension Denies: Hx Coronary Artery Disease, Hx Heart Attack Pulmonary Medical History: Denies: Hx Asthma, Hx Bronchitis, Hx COPD, Hx Pneumonia Neurological Medical History: Denies: Hx Cerebrovascular Accident, Hx Seizures Endocrine Medical History: Reports: Hx Diabetes Mellitus Type 2 - pre. Denies: Hx Diabetes Mellitus Type 1, Hx Hyperthyroidism, Hx Hypothyroidism Renal/ Medical History: Denies: Hx Peritoneal Dialysis GI Medical History: Reports: Hx Gastroesophageal Reflux Disease Musculoskeletal Medical History: Denies Hx Arthritis, Denies Hx Gout Skin Medical History: Denies Hx Eczema, Denies Hx Psoriasis Past Surgical History: Reports: Hx Hysterectomy, Hx Tubal Ligation, Other - EGD performed within the last year. - Immunizations Immunizations up to date: Yes Hx Diphtheria, Pertussis, Tetanus Vaccination: No - unsure Review of Systems - Review of Systems Notes: REVIEW OF SYSTEMS: CONSTITUTIONAL : Denies recent unintentional weight loss. See HPI. EENT: Denies eye, ear, throat, or mouth pain, discharge, or symptoms. Denies nasal or sinus congestion. CARDIOVASCULAR: Denies chest pain. RESPIRATORY: Denies shortness of breath, cough, congestion, difficulty breathing, or wheezing. GASTROINTESTINAL: See HPI. GENITOURINARY: Denies difficulty urinating, burning, blood in urine, urgency or frequency. MUSCULOSKELETAL: Denies neck and back pain. Denies joint pain or swelling. SKIN: Denies rash, itchiness, or lesions HEMATOLOGIC : Denies easy bruising or bleeding. LYMPHATIC: Denies swollen, painful, enlarged glands. NEUROLOGICAL: Denies no numbness or tingling denies weakness. Denies headache. Denies altered mental status. Denies alteration in speech. PSYCHIATRIC: Denies stress, anxiety, alteration in sleep patterns, or depression. All other systems reviewed and negative. Physical Exam - Vital signs Vitals: Temp Pulse Resp BP Pulse Ox 98.2 F 72 18 145/80 H 100 03/17/20 10:23 03/17/20 10:23 03/17/20 10:23 03/17/20 10:23 03/17/20 10:23 - Notes Notes: PHYSICAL EXAMINATION: GENERAL: Appears well, healthy, well-nourished, no acute distress. HEAD: Normocephalic, atraumatic. EYES: PERRL, conjunctiva normal, all extraocular movements intact, sclera nonicteric ENT: Moist mucous membranes. NECK: Supple, no noticeable swelling, redness, rash. Normal range of motion. LUNGS: Equal breath sounds bilaterally and clear to auscultation. No wheezes rales or rhonchi. CARDIOVASCULAR: S1-S2, regular rate, regular rhythm. Radial pulses 2+, normal. ABDOMEN: Normoactive bowel sounds. Soft, nontender, no guarding, no rebound tenderness, and no masses palpated. EXTREMITIES: Normal strength and range of motion, no pitting or edema. No cyanosis. NEUROLOGICAL: Moves all extremities upon command. Strength 5/5 in all extremities. PSYCH: Normal mood, normal affect. SKIN: Warm, dry. No rash, lesions, ulcerations noted. Normal skin turgor. Course - Re-evaluation Re-evalutation: 03/17/20 12:54 Patient states that she feels better after receiving ketorolac, Zofran, Be nadryl, and IV fluids. Patient has agreed to be tested for COVID-19. The patient was evaluated during the global COVID-19 pandemic and that diagnosis was suspected/considered upon their initial presentation. Their evaluation, treatment and testing was consistent with current guidelines for patients who present with complaints or symptoms that may be related to COVID-19. - Vital Signs Vital signs: Temp Pulse Resp BP Pulse Ox 98.3 F 56 L 20 122/93 H 100 03/17/20 13:02 03/17/20 13:02 03/17/20 13:02 03/17/20 13:02 03/17/20 13:02 Discharge - Discharge Clinical Impression: Suspected COVID-19 virus infection Headache Qualifiers: Headache type: unspecified Headache chronicity pattern: unspecified pattern Intractability: not intractable Qualified Code(s): R51.9 - Headache, unspecified Condition: Stable Disposition: HOME, SELF-CARE Instructions: COVID-19 Guidance for Persons Under Investigation Additional Instructions: As a person under investigation for COVID-19, the [place] Department of Health and Human Services (division on public health) advises you to adhere to the following guidance until your test results are reported to you. If your test result is positive, you will receive additional information from your provider and your local health department at that time. Remain at home until you are cleared by the health provider or public health authorities. Keep a log of visitors to your home, notify any visitors to your home of your isolation status. If you plan to move to a new address or leave the [facility], notify the local health department in your County. Call your Doctor or seek care if you have an urgent medical need. Before seeking medical care, call him to get instructions from the provider before arriving at the medical office, clinic, or hospital. Notify them that you are being tested for the virus (COVID-19) so that arrangements can be made, as necessary, to prevent transmission to others in the healthcare setting. Next, notify the local health department in your county. If you develop a similar headache in the future I recommend that you immediately take 600 mg of ibuprofen and 50 mg of Benadryl and go to sleep as quickly as possible. This can often prevent your migraine headache from becoming severe. Prescriptions: Metoclopramide HCl [Reglan 10 mg Tablet] 1 - 2 tab PO ASDIR PRN #25 tablet PRN Reason: [facility] [NO LOCAL MD] - Follow up as needed
[2020-03-17 13:08] VITALS: BP 122/93
== END 2020-03-17 13:09 | disposition home or self-care (01) ==
LOC: ER 10:15
DX: U07.1 COVID-19 (principal); R51.9 Headache, unspecified; E78.00 Pure hypercholesterolemia, unspecified; I10 Essential (primary) hypertension; Z79.899 Other long term (current) drug therapy; Z91.041 Radiographic dye allergy status; Z88.8 Allergy status to other drugs, medicaments and biological substances; Z91.018 Allergy to other foods
CPT/HCPCS: 99284; 96361; 96374; 96375; 87070; 87880; 87635; 87804; J1200; J1885; J2405; J7030; C9803

== ENCOUNTER → 2020-05-20 | Outpatient (CLI) | payer MEDICAID ==
--- NOTE | 2020-05-21 14:22 | WOMENS IMAGING REPORT ---
EXAM DESCRIPTION: BILAT SCREENING MAMMO W/CAD IMAGES COMPLETED DATE/TIME: 05/20/2020 7:57 am REASON FOR STUDY: ROUTINE BILATERAL SCREENING;Z12.31 Z12.31 ENCNTR SCREEN MAMMOGRAM FOR MALIGNANT N EOPLASM OF NOEL COMPARISON: 2013 outside facility. EXAM PARAMETERS: Standard craniocaudal and mediolateral oblique views of each breast recorded using digital acquisition. Read with the assistance of CAD. .[facility] - [employer] Application Clerk Version 9.2 LIMITATIONS: None. FINDINGS: No suspicious masses, suspicious calcifications or architectural distortion. No areas of c oncern. IMPRESSION: NEGATIVE MAMMOGRAM. BIRADS 1 BREAST DENSITY: b. There are scattered areas of fibroglandular density. BIRAD: ASSESSMENT: 1 NEGATIVE RECOMMENDATION: ROUTINE SCREENING COMMENT: The patient has been notified of the results by letter per MQSA requirements. Additional no tification policies are in place for contacting patient with suspicious or incomplete findings. Quality ID #[id number]: The [employer] recommends an annual screening mammogram for women aged 40 years or over. This facility utilizes a reminder system to ensure that all patients receive reminder letters, and/or direct phone calls for appointments. This includes reminders for routine scr eening mammograms, diagnostic mammograms, or other Breast Imaging Interventions when appropriate. Th is patient will be placed in the appropriate reminder system. TECHNICAL DOCUMENTATION: FINDING NUMBER: (1) ASSESSMENT: (1) JOB ID: [id number] 2010 [employer]- All Rights Reserved Reading location - IP/workstation name: [email or web address]
== END ==
LOC: WI 07:36
PROVIDERS: ATTEND Nurse Practitioner Family
DX: Z12.31 Encounter for screening mammogram for malignant neoplasm of breast (principal)
CPT/HCPCS: 77067

== ENCOUNTER 2020-05-27 23:37 | Emergency (ER) | payer MEDICAID ==
[2020-05-27 23:49] VITALS: BP 174/78
--- NOTE | 2020-05-28 07:19 | EKG REPORT ---
SEVERITY:- BORDERLINE ECG - SINUS RHYTHM PROBABLE LEFT ATRIAL ABNORMALITY : Confirmed by: Everardo Mitchell MD 28-May-2020 07:19:04
== END 2020-05-28 01:05 | disposition left against medical advice (07) ==
LOC: ER 23:37
DX: Z53.21 Procedure and treatment not carried out due to patient leaving prior to being seen by health care provider (principal)
CPT/HCPCS: 93005; 93010